=== PATIENT | female | born 1975 | race Caucasian/White ===

== ENCOUNTER 2023-09-02 11:39 | Emergency (ER) | payer MEDICAID, SELFPAY ==
[2023-09-02 11:40] VITALS: BP 114/84; PULSE 74; RESP 14; TEMP 37.2; O2SAT 98; BMI 27.6
[2023-09-02 12:11] VITALS: O2SAT 97
--- OUTSIDE RECORDS SUMMARY | 2023-09-02 12:34 | XMS RPT_ITS | CCD ---
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 She denies any headache. She has had recurrent dizziness. She had episodes of syncope. No chest pain. No shortness of breath. No abdominal pain. No recent infections. No fever or chills. The rest of the review of systems were discussed and were negative. PHYSICAL EXAMINATION GENERAL APPEARANCE: The patient was lying in bed in no acute distress. She was alert and cooperative. VITAL SIGNS: Blood pressure 119/74, heart rate 60, respirations 14, temperature 97, oxygen saturation 98% on room air, weight 141 pounds with BMI of 26.64. HEENT: Unremarkable. NECK: Neck is supple. No JVD. LUNGS: Normal respiratory effort, equal lung expansion, clear to auscultation bilaterally. HEART: Regular rate and rhythm. ABDOMEN: Positive bowel sounds, soft and nontender. EXTREMITIES: Free of pitting edema. NEUROLOGIC: She is alert and oriented. Mood, affect, and memory are within normal limits. Speech is clear. She has no focal deficits. NEUROLOGIC: Laboratory data: White count is within normal limits, as well as hemoglobin and hematocrit. CMP is unremarkable. Troponin is negative. SARS antigen is negative. DIAGNOSTIC DATA: MRI of the brain with no ischemia or mass. Echocardiogram, read by [employer], I had a verbal report prior to discharge that she has as PFO. I did not have the written report as I do now. Ejection fraction is 55 to 60%. Page 2 of 4 KIRTI AGUAYO History Physical/Discharge Summary KIRTI AGUAYO Lissa :1975 No valvular dysfunction. Right ventricles normal size and function. Agitated saline showed a [id number] shunt, appears late, possible pulmonary level shunt, and cannot entirely rule out a PFO. Estimated right ventricular systolic pressure of 15. Otherwise testing was normal. IMPRESSION/PLAN: She was requesting to go home today as she has a trip to [place] tomorrow, somebody else is driving, and she needs to get to a graduation. She has no further symptoms. She was instructed if she has any further symptoms that she needs to go to the emergency room. It was discussed with her on discharge she needs to start an aspirin and her risks with a PFO, and she will need to followup with cardiology to see if any further intervention is needed. The final report shows possible PFO, so I will allow this up to the specialist to decide if she needs further anticoagul (more content not included)... [facility] 12-29-2021 Instructions Piper Gtz De - 12/29/2021 8:32 AM EDT YOUR RECOVERY It may take a few weeks for your cervix to heal. While your cervix heals, you may have: - Vaginal bleeding (less than a normal menstrual period) - Mild cramping - A brown-black vaginal discharge (similar to coffee grounds) which is a result of the paste used to help stop bleeding from the procedure Do NOT put anything in the vagina for 1 week after your colposcopy if your doctor does a biopsy of your cervix. This includes sex, tampons, and douches. If you have any discomfort, you may take an over the counter pain medication (motrin, advil, ibuprofen, tylenol, etc). If this does not relieve your discomfort, contact your doctor's office for a prescription strength pain medication. It is okay to wear a sanitary pad until the discharge and spotting stops. RISKS Although problems seldom occur with colposcopy, there can be some complications. You may feel faint during and shortly after the procedure as well as have some bleeding and vaginal discharge after the procedure. There is also a risk of infection after the procedure. These complications are rare and can be easily treated. You should contact you doctor is you have any of the following: - Heavy bleeding (more than your normal period) - Bleeding with clots - Severe abdominal pain - Fever (more than 100.4F) - Foul smelling vaginal discharge RESULTS If a biopsy was taken, we will have the results of your biopsy in 1-2 weeks. If you do not hear the results of your biopsy after 2 weeks, please contact your physicians office for the results. Depending on the biopsy results, your doctor will determine your follow up plan which may include further testing or treatments. STAYING HEALTHY After the procedure, you will need to see your doctor for follow up visits during the year. At these visits your doctor will check the health of your cervix with a pap smear. After three normal pap smears, your doctor will allow you to return to having exams once a year. If you have another abnormal pap smear, you may need closer follow up for longer or you may need additional treatment. By making a few lifestyle changes after the procedure, you can help protect the health of your cervix: - Have regular pelvic exams and pap smears as ordered by your doctor. - Stop smoking as smoking increases your risk of developing a cancer of the cervix - If you have more than one sexual partner, limit your number of partners and use condoms to reduce your risks of STDs. If you have any additional questions, please contact your doctor's office. documented in this encounter [facility] 12-29-2021 History of Presen t illness Narrative Kirti is a 46 year old who presents today for a colposcopy. The patient's last pap smear was LGSIL from 2021 done by PCP - records reviewed and to be scanned in. Patient has a history of abnormal pap: Yes. The patient has had prior treatment: none. test: negative UNIVERSAL PROTOCOL / SAFETY CHECKLIST Procedure to be Performed: colposcopy with biopsy and ECC Sign In: A Moment of CARE was completed. Personnel directly involved with the procedure wore the appropriate PPE (Personal Protective Equipment). Patient/Surrogate Stated/Verified: PATIENT VERIFIED(optional for EMERGENT procedures): Patient name, Date of , Relevant allergies and The intended procedure Time Out Communication: Intended patient and procedure match the source documents. Consent documented and matches the intended procedure. Sign Out: SIGN OUT (optional for EMERGENT procedures): All specimen containers correctly labeled. All instruments, equipment, possible retained foreign bodies accounted for. Post-procedure follow-up management communicated and Plan of Care Visit completed when applicable. PROCEDURE: EXTERNAL GENITALIA: Normal in appearance without lesions VAGINA: Normal in appearance without lesions CERVIX: Speculum placed in vagina and excellent visualization of cervix achieved. Cervix swabbed x 3 with 3% acetic acid solution. Cervix grossly normal. Squamocolumnar junction visualized. acetowhite changes noted 7 o'clock. BIOPSY: Done at 7:00 ECC: done HEMOSTASIS: Obtained with pressure Procedure Summary: Patient tolerated procedure well and colposcopy was adequate. ASSESSMENT: HPV effect and mild dysplasia PLAN: Specimens labeled and sent to Pathology. Will notify patient of results in 1-2 weeks. Post-procedure instructions reviewed and written material given to the patient. Regina Cardona DO documented in this encounter [facility] 12-16-2021 Miscellaneous Notes Pt returned call and was given below information and assisted in scheduling an appt. For colposcopy. Marsha Garza LPN Received fax from [facility] requesting patient be seen in our office for a colposcopy. LGSIL pap. Left message for patient to call office. Pap record in / nurse area. Kirti Treadwell RN documented in this encounter [facility] Diagnosis Pap smear abnormality of cervix with LGSIL Papanicolaou smear of cervix with low grade squamous intraepithelial lesion (LGSIL) Cervical high risk human papillomavirus (HPV) DNA test positive documented in this encounter [facility] for referral (narrative)* Outpatient Procedure (Routine) - Pending Review Specialty Diagnoses / Procedures Referred By Mark west Referred To Contact [facility] Diagnoses Dyspnea, unspecified type Procedures SPIROMETRY WITH DILATOR IF OBSTRUCTED SPIROMETRY BEFORE/AFTER BRONCHODILATORS Lyssa Mcpherson MD [address] [place] [address] [facility] [address] [place] [id number] Referral ID Status Reason Start Date Expiration Date Visits Requested Visits Authorized [id number] Pending Review Auto-Generat ed Referral 09/23/2021 10/22/2022 1 1 [facility] for referral (narrative)* Outpatient Procedure (Routine) - Pending Review Specialty Diagnoses / Procedures Referred By Mark west Referred To Contact [facility] Diagnoses Pap smear abnormality of cervix with LGSIL Procedures COLPOSCOPY COLPOSCOPY CERVIX BX CERVIX & ENDOCRV CURRETAGE Regina Cardona MD [address] [place] [address] [facility] [address] [place] [address] Referral ID Status Reason Start Date Expiration Date Visits Requested Visits Authorized [id number] Pending Review Auto-Generat ed Referral 12/29/2021 12/29/2022 1 1 [facility] Summary Purpose Family History No Family History Records FoundNo Family History Records FoundNo Family History Records FoundNo Family History Records FoundNo Family History Records Found Advance Directives No Advanced Directives Records FoundNo Advanced Directives Records FoundNo Advanced Directives Records FoundNo Advanced Directives Records FoundNo Advanced Directives Records Found Additional Source Comments INFORMATION SOURCE (unrecogn ized section and content) DATE CREATED AUTHOR AUTHOR'S ORGANIZ ATION 08/08/2021 [facility] DATE CREATED AUTHOR AUTHOR'S ORGANIZ ATION 12/16/2021 [facility] DATE CREATED AUTHOR AUTHOR'S ORGANIZ ATION 05/04/2022 [facility] DATE CREATED AUTHOR AUTHOR'S ORGANIZ ATION 04/24/2023 [facility] Source Comments (unrecognize d section and content) In the event this informatio n is protected by the Federal Confidentiality of Alcohol and Drug Abuse Patient Records regulations: The Federal rules restrict any use of the information to criminally investigate or prosecute any alcohol or drug abuse patient.[facility] event this information is protected by the Federal Confidentiality of Alcohol and Drug Abuse Patient Records regulations: The Federal rules restrict any use of the information to criminally investigate or prosecute any alcohol or drug abuse patient.[facility] the event this information is protected by the Federal Confidentiality of Alcohol and Drug Abuse Patient Records regulations: The Federal rules restrict any use of the information to criminally investigate or prosecute any alcohol or drug abuse patient.[facility] Reason for Visit (unrecogniz ed section and content) Reason Comments Colposcopy Care Teams (unrecognized sec tion and content) Rabbit Fancier Relationship Specialty Start Date End Date [facility] [address] [facility] [address] [place] [id number] PCP - General Infectious Diseases 10/17/21 FOR RECORDS PERTAINING TO PATIENTS WHO ARE OR HAVE BEEN ENROLLED IN A CHEMICAL DEPENDENCY/SUBSTANCEABUSE PROGRAM, SOME INFORMATION MAY BE OMITTED. This clinical summary was aggregated from multiple sources. Caution should be exercised in using it in the provision of clinical care. This summary normalizes information from multiple sources, and as a consequence, information in this document may materially change the coding, format and clinical context of patient data. In addition, data may be omitted in some cases. CLINICAL DECISIONS SHOULD BE BASED ON THE PRIMARY CLINICAL RECORDS. [facility]. provides no warranty or guarantee of the accuracy or completeness of information in this document.
--- NOTE | 2023-09-02 13:04 | EDS_ITS ---
HPI History of Present Illness Chief Complaint: Shortness of Breath Informant: patient Narrative Narrative: Patient presents with still having a cough after COVID. She started with some cough myalgias runny nose Wednesday about 9 days ago. She took home COVID test on Wednesday that were positive. She saw the work place nurse on Wednesday who had a positive COVID. She was able to go back to work this past Wednesday but she went back yesterday because Wednesday was a day off for the workplace. She states she just is still coughing. She notices that she is wheezing. She does have a history of asthma but only uses an inhaler as needed. She states the asthma inh aler helps but the symptoms come back. She was bringing up a little bit of sputum originally but is not doing that now. No fevers. She is not having chest pain. No hemoptysis. No leg pain or swelling. No history of DVT or PE in her other family members. No travel in the last several months or more. No history of hormonal therapy. [facility] Medical History Asthma Cardiac abnormality Allergy/AdvReac Type Severity Reaction Status Date / Time No Known Allergies Allergy Verified 09/02/23 11:39 Social History Smoking Status: Never smoker ROS ROS ED ROS Narrative A complete review of systems was performed and is negative except as documented in the history of present illness. Some specific details below. Constitutional: No recent fevers or chills. She had fevers originally but they are gone EYE: No discharge, visual complaints, or pain. ENT: No difficulty swallowing. No swelling. No pain. No reflux symptoms. CV: No chest pain, palpitations, tachycardia. She has a history of what sounds like a small VSD and does take propranolol but is not having symptoms. Respiratory: See history of present illness. GI: No abdominal pain. No nausea vomiting diarrhea. No blood in stool. : No frequency dysuria or hematuria. Musculoskeletal: No recent trauma. No pains. No swelling. Skin: No rash. Nondiaphoretic. Neuro: No weakness or numbness. Endocrine: No polyuria or polydipsia. EXAM Physical Exam Narrative Exam Narrative: CONSTITUTIONAL: Patient is nontoxic in appearance. The patient looks comfortable. Work of breathing looks normal. HEENT: No notable trauma. Mucous membranes moist. No sinus tenderness. No indication of pain with swallowing. No erythema or exudate. EYES: No conjunctival injection. No proptosis. No icterus. NECK:No JVD. No stridor. CARDIOVASCULAR: Regular rate. Regular rhythm. No notable murmur. No JVD. RESPIRATORY: No respiratory distress. Breathing is unlabored. With regular breaths she does not have wheezing. With a large deep breath or forced expiration she does have a hint of wheeze. When she coughs she has a wheeze. No pain with a deep breath. GASTROINTESTINAL: Not distended. Bowel sounds are normal. No tenderness. No guarding. No rebound. No palpable mass. No bruit is heard. GENITOURINARY: No tenderness over the bladder. No CVA tenderness. MUSCULOSKELETAL: Atraumatic. No peripheral edema. No cord. No tenderness along the deep venous system. No asymmetry. No distended veins. NEUROLOGICAL: Patient is alert and appropriate. No focal deficit noted. SKIN: No noted rashes. No diaphoresis. PSYCHIATRIC: Patient is calm. Mood is appropriate. Const Vital Signs: 09/02/23 11:40 09/02/23 12:11 09/02/23 13:06 Temperature 99 F Temperature Source Temporal Pulse Rate 74 69 Respiratory Rate 14 18 Respiratory Effort Normal Non-Labored Respiratory Depth Normal Respiratory Pattern Normal Normal Blood Pressure 114/84 H Blood Pressure Mean 94 Pulse Ox 98 Oxygen Delivery Method Room Air Room Air MDM MDM MDM Narrative Medical decision making narrative: My independent interpretation of the patient's two-view PA and lateral chest x- ray shows no acute process. Final reading is negative. Patient's COVID is still positive. But her flu and RSV are negative. Patient now tells me she also took COVID tests on Wednesday and likely Wednesday of this week and those were negative. So that brings into question is this new COVID. I will write her off for today and tomorrow. She will follow-up with her workplace nurse. I do not think antibiotics or any other acute treatment is needed. Her lungs were cleared with her breathing treatment. She has a MDI at home Radiography Diagnostic Testing: Clinical Impression(s) from Imaging Studies Chest X-Ray 09/02/23 13:15 IMPRESSION: No evidence of acute cardiopulmonary process. Electronically Signed: Johnathan Acosta DO at 13:25 EST , Discharge Plan Triage Chief Complaint: Shortness of Breath ED Provider: Nicholas Cosby Dx/Rx/DC Orders Clinical Impression: COVID Instructions: Coronavirus Disease 2019 (COVID-19): Caring for Yourself or Others Stand Alone Forms: ED Work / School Excuse Primary Care Provider: Silvia Padron Referrals: Silvia Padron MD [Primary Care Provider] - 2 Days Disposition Disposition: Home, Self Care
[2023-09-02] MEDS: Ipratropium/Albuterol Sulfate 3 ML AMPUL.NEB INHALATION (13:05)
[2023-09-02 13:06] VITALS: PULSE 69; RESP 18
--- NOTE | 2023-09-02 13:15 | RAD_ITS ---
STUDY: X-RAY CHEST REASON FOR EXAM: Female, 48 years old. cough TECHNIQUE: PA and lateral views of the chest. COMPARISON: None. FINDINGS: The lungs are clear and expanded. There is no demonstrated pleural abnormality. Normal size heart. Normal mediastinum and elida. Normal visualized pulmonary arteries. Normal visualized aortic arch and descending thoracic aorta. Normal visualized thoracic spine. Normal visualized ribs, clavicles, and shoulders. There is no demonstrated abnormality of the visualized soft tissue structures of the upper abdomen. RAD/Chest PA and Lateral IMPRESSION: No evidence of acute cardiopulmonary process. Electronically Signed: Johnathan Acosta DO at 13:25 [facility] ,
[2023-09-02 15:22] VITALS: BP 118/79; PULSE 99; RESP 18; O2SAT 98
== END 2023-09-02 15:24 | disposition home or self-care (01) ==
PROVIDERS: Emergency Provider Emergency Medicine; PCP Internal Medicine Infectious Disease; Visit Provider Emergency Medicine
DX: U07.1 COVID-19 (principal); J45.909 Unspecified asthma, uncomplicated
CPT/HCPCS: 71046; 87631; 94640; 99282

== ENCOUNTER → 2023-11-22 | Outpatient (CLI) | payer MEDICAID, SELFPAY ==
[2023-11-22 17:43] LABS: Absolute Lymphocyte Count 4.18 X10^3/uL (0.83-4.51); Absolute Neutrophil Count 4.9 X10^3/uL (2.0-7.7); Basophil# 0.05 X10^3/uL; Basophil% 0.5 % (0-1); Eosinophil# 0.39 X10^3/uL; Eosinophils% 3.9 % (0-5); Hematocrit 37.1 % (37-47); Hemoglobin 11.8 g/dL (12.0-15.0); Lymphocyte # 4.18 X10^3/ul (0.83-4.51); Lymphocyte % 41.5 % (19-41); Mean Corp Hgb Conc 31.8 g/dL (32-36); Mean Corpuscular Hgb 30.3 pg (27.0-32.0); Mean Corpuscular Volume 95.1 fL (81-99); Mean Platelet Vol. 9.4 fl (6.2-12.0); NRBC Flagged by Analyzer 0 % (0-5); Neutrophil # 4.93 X10^3/uL (2.7-7.7); Neutrophil % 48.9 % (47-70); Platelet Count 278 K/mm3 (150-450); RBC Distribution Width CV 13.3 % (11.6-14.6); RBC Distribution Width SD 46.6 fl (35.1-43.9); White Blood Count 10.1 K/mm3 (4.4-11.0)
[2023-11-22 18:08] LABS: AST(SGOT) 14 U/L (15-37); Alanine Aminotransfer ALT/SGPT 15 U/L (13-56); Albumin, Serum 3.7 g/dL (3.2-5.0); Alkaline Phosphatase 65 U/L (45-117); Anion Gap 6 (5-15); BUN 14 mg/dL (7-18); BUN/Creat Ratio 19.3 RATIO (10-20); Calcium,Total 8.9 mg/dL (8.5-10.1); Chloride 106 mmol/L (98-107); Creatinine, Serum 0.73 mg/dL (0.55-1.02); EST Glomerular Filtration Rate 91 mL/min (>60); Est Glom Filt Rate - Afr Amer 110 mL/min (>60); Globulin 3.7 g/dL (2.2-4.2); Glucose 85 mg/dL (74-106); Protein, Total 7.4 g/dL (6.4-8.2); Sodium Level 138 mmol/L (136-145)
== END | disposition home or self-care (01) ==
LOC: MTLAB 15:59
PROVIDERS: PCP Family Medicine; Referring Provider Family Medicine; Visit Provider Family Medicine
DX: B35.3 Tinea pedis (principal)
CPT/HCPCS: 36415; 80053; 85025

== ENCOUNTER → 2024-01-07 | Outpatient (CLI) | payer MEDICAID, SELFPAY ==
[2024-01-07 18:09] LABS: Thyroid Stim Hormone (TSH) 3.36 uIU/mL (0.358-3.74)
== END | disposition home or self-care (01) ==
PROVIDERS: PCP Family Medicine; Referring Provider Family Medicine; Visit Provider Family Medicine
DX: F33.9 Major depressive disorder, recurrent, unspecified (principal)
CPT/HCPCS: 36415; 84443

== ENCOUNTER 2024-01-11 08:05 | Emergency (ER) | payer MEDICAID, SELFPAY ==
[2024-01-11 08:07] VITALS: BP 123/69; PULSE 79; RESP 87; TEMP 36.6; O2SAT 16; BMI 28.4
--- NOTE | 2024-01-11 08:16 | RAD_ITS ---
STUDY: X-RAY CHEST REASON FOR EXAM: Female, 48 years old. Chest pain and shortness of breath. TECHNIQUE: Single AP portable view of the chest. COMPARISON: Comparison is made with prior study dated September 02, 2023. FINDINGS: EKG electrodes are seen. The lungs are clear and expanded. There is no demonstrated pleural abnormality. Normal size heart. Normal mediastinum and elida. Normal visualized pulmonary arteries. Normal visualized aortic arch and descending thoracic aorta. Normal visualized thoracic spine. Normal visualized ribs, clavicles, and shoulders. There is no demonstrated abnormality of the visualized soft tissue structures of the upper abdomen. RAD/Chest 1 View (Portable) IMPRESSION: Normal x-ray examination of the chest. Electronically Signed: Maged De Paz MD at 8:39 EDT ,
--- NOTE | 2024-01-11 08:16 | EKG12_ITS ---
Test Reason : CHEST PAIN Blood Pressure : / mmHG Vent. Rate : 072 BPM Atrial Rate : 072 BPM P-R Int : 160 ms QRS Dur : 082 ms QT Int : 400 ms P-R-T Axes : 075 078 070 degrees QTc Int : 438 ms Normal sinus rhythm Normal ECG Confirmed by BRIGITTE MOORE, DUGLAS ([id number]), editor trade journal ASHKAN BAIRD ([id number]) on 01/13/2024 10:11:17 AM Referred By: Confirmed By:DUGLAS BRIGGS MD
[2024-01-11 08:34] LABS: Absolute Lymphocyte Count 3.53 X10^3/uL (0.83-4.51); Absolute Neutrophil Count 4.2 X10^3/uL (2.0-7.7); Basophil# 0.04 X10^3/uL; Basophil% 0.5 % (0-1); Eosinophil# 0.33 X10^3/uL; Eosinophils% 3.7 % (0-5); Hematocrit 39.1 % (37-47); Hemoglobin 12.9 g/dL (12.0-15.0); Lymphocyte # 3.53 X10^3/ul (0.83-4.51); Lymphocyte % 39.8 % (19-41); Mean Corpuscular Hgb 31.6 pg (27.0-32.0); Mean Corpuscular Volume 95.8 fL (81-99); Mean Platelet Vol. 9.3 fl (6.2-12.0); Monocyte# 0.74 X10^3/uL; Monocyte% 8.4 % (0-10); NRBC Flagged by Analyzer 0 % (0-5); Neutrophil % 47.4 % (47-70); Platelet Count 259 K/mm3 (150-450); RBC Distribution Width CV 13.1 % (11.6-14.6); RBC Distribution Width SD 46.9 fl (35.1-43.9); Red Blood Count 4.08 M/mm3 (4.2-5.4); White Blood Count 8.9 K/mm3 (4.4-11.0)
--- NOTE | 2024-01-11 08:49 | ED.VIS.CHEST ---
HPI History of Present Illness Chief Complaint: Chest Pain Narrative Narrative: 48-year-old female presenting with chest pain. She states the chest pain started yesterday in the mid day and has been pretty constant. She cannot describe it any more than to say it hurts. It does hurt worse with deep inspiration and with coughing. She has not had a lot of coughing but she states she feels unwell like she has pneumonia. She denies fever. Patient states she has had back pain for 2 days prior to the chest pain starting. She states that laying down makes her pain worse and sitting up relieves it to some degree but it does not go away. She is not lightheaded or dizzy but she does feel short of breath. She tried to go to work today and she did not feel she could do it due to the pain and shortness of breath. Patient is a smoker. She states she has a history of a hole in my heart. She states he follows with somebody [facility] yearly for checkups. She has history of DVT 20 years ago when but no other history of provoked or unprovoked DVT. PE Risk Factors: Positive for Prior DVT or PE; Negative for Recent Travel/Surgery, Recent Immobilization, Cancer or OCP + Smoking + >/=35 PFSH PFSH Medical History Asthma Cardiac abnormality Home Medications albuterol sulfate 90 mcg/actuation aerosol inhaler (Ventolin HFA) 1 - 2 puff inhalation Q4H PRN PRN Wheezing #6.7 grams 01/11/24 [Rx Last Taken Unknown] lidocaine 5 % topical patch (Lidoderm) 1 patch topical DAILY #15 ea 01/11/24 [Rx Last Taken Unknown] prednisone 50 mg tablet 50 mg PO DAILY #4 tabs 01/11/24 [Rx Last Taken Unknown] tizanidine 4 mg tablet 4 mg PO Q8H PRN muscle spasticity #20 tabs 01/11/24 [Rx Last Taken Unknown] Allergy/AdvReac Type Severity Reaction Status Date / Time No Known Allergies Allergy Verified 01/11/24 08:06 Social History Smoking Status: Never smoker EXAM Physical Exam Const Vital Signs: 01/11/24 08:07 01/11/24 08:16 01/11/24 08:16 Temperature 98 F Temperature Source Temporal Pulse Rate 79 Respiratory Rate 87 H Respiratory Effort Normal Respiratory Pattern Blood Pressure 123/69 H Blood Pressure Mean 87 Pulse Ox 16 Oxygen Delivery Method Room Air Room Air 01/11/24 09:14 Temperature Temperature Source Pulse Rate 59 L Respiratory Rate 18 Respiratory Effort Respiratory Pattern Normal Blood Pressure Blood Pressure Mean Pulse Ox Oxygen Delivery Method Positive well nourished General Appearance ED: NAD HEENT Reports moist mucous membranes normocephalic and atraumatic Eyes PERRL and EOMs intact bilaterally MDM MDM MDM Narrative Medical decision making narrative: Patient presenting chest pain which has had since yesterday. She also has some shortness of breath. On examination she is wheezing and she was given breathing treatments as well as Solu-Medrol. Differential includes asthma flare, pneumonia, ACS, PE, dehydration, electrolyte abnormalities. CBC shows normal white blood cell count, hemoglobin, platelets. BMP shows normal renal function, electrolytes, glucose. High-sensitivity troponin less than 3 with pain since yesterday sidle believe she is a delta troponin. D-dimer was negative. Chest x-ray my interpretation showed no acute process. Radiologist interprets this and agrees. EKG sinus rhythm at 72 bpm, ischemic change or dysrhythmia. I do believe that the patient's pain is likely musculoskeletal as she has reproducible pain in the upper back and chest. Workup is ultimately normal. I will give her an albuterol inhaler and prednisone for her wheezing and shortness of breath. I will give her muscle lectures for her back pain. She is to take Tylenol and ibuprofen. She is given a work note for today. Impression: 1. Back pain 2. Chest pain Lab Data Attestation: I reviewed the patient's lab results. Labs: Laboratory Results - last 24 hr 01/11/24 08:22 WBC 8.9 RBC 4.08 L Hgb 12.9 Hct 39.1 MCV 95.8 MCH 31.6 MCHC 33.0 RDW Std Deviation 46.9 H RDW Coeff of Fariha 13.1 Plt Count 259 MPV 9.3 Immature Gran % (Auto) 0.200 Neut % (Auto) 47.4 Lymph % (Auto) 39.8 [place] % (Auto) 8.4 Eos % (Auto) 3.7 Baso % (Auto) 0.5 Absolute Neuts (auto) 4.2 Absolute Lymphs (auto) 3.53 Nucleated RBC % 0 D-Dimer Quant (PE/DVT) < 0.27 L Sodium 138 Potassium 4.0 Chloride 107 Carbon Dioxide 28.0 Anion Gap 3 L BUN 12 Creatinine 0.78 Estim Creat Clear Calc 78.77 Est GFR (MDRD) Af Amer 102 Est GFR (MDRD) Non-Af 84 BUN/Creatinine Ratio 15.4 Glucose 91 Calcium 8.7 Troponin I High Sens < 3 L Radiography Diagnostic Testing: Clinical Impression(s) from Imaging Studies Chest X-Ray 01/11/24 08:16 IMPRESSION: Normal x-ray examination of the chest. Electronically Signed: Maged De Paz MD at 8:39 EDT , Discharge Plan Triage Chief Complaint: Chest Pain ED Provider: Heladio Olivares Dx/Rx/DC Orders Instructions: ED Asthma, Acute (Adult), ED Back Spasm, No Trauma Prescriptions: New tizanidine 4 mg tablet 4 mg PO Q8H PRN (Reason: muscle spasticity) Qty: 20 0RF prednisone 50 mg tablet 50 mg PO DAILY Qty: 4 0RF albuterol sulfate [Ventolin HFA] 90 mcg/actuation HFA aerosol inhaler 1 - 2 puff inhalation Q4H PRN PRN (Reason: Wheezing) Qty: 6.7 0RF lidocaine [Lidoderm] 5 % adhesive patch,medicated 1 patch topical DAILY Qty: 15 0RF Rx Instructions: leave on most painful area for up to 12 hrs Stand Alone Forms: Work / School Excuse Primary Care Provider: Chepe Watkins Referrals: Chepe Watkins MD [Primary Care Provider] - Disposition Disposition: Home, Self Care
[2024-01-11 08:57] LABS: Anion Gap 3 (5-15); BUN 12 mg/dL (7-18); BUN/Creat Ratio 15.4 RATIO (10-20); Calcium,Total 8.7 mg/dL (8.5-10.1); Chloride 107 mmol/L (98-107); Creatinine, Serum 0.78 mg/dL (0.55-1.02); EST Glomerular Filtration Rate 84 mL/min (>60); Est Glom Filt Rate - Afr Amer 102 mL/min (>60); Estimated Creatinine Clearance 78.77 ml/min; Glucose 91 mg/dL (74-106); Sodium Level 138 mmol/L (136-145); Troponin-I HS (w/2H Reflex) < 3 pg/mL (3.0-54.0)
[2024-01-11] MEDS: Albuterol 2.5 MG/3 ML VIAL.NEB. INHALATION (09:13)
[2024-01-11] MEDS: Ipratropium/Albuterol Sulfate 3 ML AMPUL.NEB INHALATION (09:13)
[2024-01-11 09:14] VITALS: PULSE 59; RESP 18
[2024-01-11] MEDS: Ketorolac 15 MG/ML Vial IV (09:15)
[2024-01-11] MEDS: MethylPREDNISolone 125 MG/2 ML Vial IV (09:15)
[2024-01-11] MEDS: Morphine 4 MG/ML Syringe IV (09:49)
[2024-01-11] MEDS: Ondansetron 4 MG/2 ML Vial IV (09:49)
[2024-01-11 10:00] LABS: D-Dimer Quantitative (DVT/PE) < 0.27 FEU/ug/m (0.27-0.49)
[2024-01-11 10:06] VITALS: BP 99/78; PULSE 78; RESP 16; O2SAT 99
[2024-01-11 10:30] LABS: Reflex Troponin-HS? (from REC) Y
[2024-01-11 12:06] VITALS: BP 103/76; PULSE 85; RESP 16; O2SAT 99
[2024-01-11 12:34] VITALS: BP 99/64; PULSE 67; RESP 14; TEMP 36.4; O2SAT 99
== END 2024-01-11 12:35 | disposition home or self-care (01) ==
PROVIDERS: Emergency Medicine; Emergency Provider Student in an Organized Health Care Education/Training Program; PCP Family Medicine; Visit Provider Student in an Organized Health Care Education/Training Program
DX: R07.9 Chest pain, unspecified (principal); R06.02 Shortness of breath; M54.9 Dorsalgia, unspecified; J45.909 Unspecified asthma, uncomplicated
CPT/HCPCS: 71045; 80048; 84484; 85025; 85379; 93005; 94640; 96374; 96375; 99285; A4216; J2405

== ENCOUNTER 2024-02-18 16:20 | Emergency (ER) | payer OTHER, SELFPAY ==
[2024-02-18 16:21] VITALS: BP 138/80; PULSE 78; RESP 18; TEMP 35.7; O2SAT 98; BMI 28.7
--- NOTE | 2024-02-18 16:29 | EDS_ITS ---
HPI History of Present Illness Chief Complaint: Syncope Informant: patient Onset/Context/Timing Onset: Month(s) (1) Context: Sudden Onset Timing: Intermittent Quality: Dizzy, lightheaded Location: Generalized Worsened by: Nothing Relieved by: Nothing Narrative Narrative: Patient presents with multiple syncopal episodes that have been occurring over the past month. Patient states she gets dizzy and has palpitations and then passes out for a few seconds to a minute. Patient states that these come on rather suddenly. Patient states she has had a couple episodes today. Currently, patient states she still feels some palpitations at this time. Patient states nothing makes her symptoms better and nothing makes them worse. Patient states she has been decreasing her caffeine intake. Patient states she did have some subjective fevers the other day. Patient also admits to some blurred vision. Patient admits to some shortness of breath and nausea. Patient also admits to mild headache. [facility] Medical History Asthma Cardiac abnormality Home Medications ?Medication ?Instructions ?Recorded ?Last Taken ?Type albuterol sulfate 90 mcg/actuation 1 - 2 puff inhalation Q4H PRN PRN 01/11/24 Unknown Rx aerosol inhaler (Ventolin HFA) Wheezing #6.7 grams lidocaine 5 % topical patch 1 patch topical DAILY #15 ea 01/11/24 Unknown Rx (Lidoderm) prednisone 50 mg tablet 50 mg PO DAILY #4 tabs 01/11/24 Unknown Rx tizanidine 4 mg tablet 4 mg PO Q8H PRN muscle spasticity 01/11/24 Unknown Rx #20 tabs Allergy/AdvReac Type Severity Reaction Status Date / Time No Known Allergies Allergy Verified 02/18/24 16:21 Social History (Updated 02/18/24 @ 16:[address] Cuco Goldstein, DO) Smoking Status: Current every day smoker tobacco type: cigarettes ROS ROS ED Constitutional Constitutional ED: Reports fever(s) and subjective; Denies chills Eyes Eyes: Reports blurry vision; Denies change in vision ENT ENT ED: Denies rhinorrhea or sore throat Cardiovascular Cardiovascular: Reports palpitations; Denies chest pain Respiratory/Chest Respiratory/Chest: Reports dyspnea; Denies cough Gastrointestinal Gastrointestinal: Reports nausea; Denies vomiting Genitourinary Genitourinary ED: Denies dysuria or hematuria Musculoskeletal Musculoskeletal: Denies back pain or neck pain Integumentary Denies abscess or rash Neurologic Neurologic: Reports headache(s); Denies weakness Allergic/Immunologic Allergic/Immunologic ED: Denies mouth swelling or urticaria EXAM Physical Exam Const Vital Signs: 02/18/24 16:21 02/18/24 17:05 02/18/24 17:11 Temperature 96.2 F L Temperature Source Temporal Pulse Rate 78 Pulse Rate [Sitting (for 1 minute prior to obtaining)] 75 Pulse Rate [Standing (for 1 minute prior to obtaining)] 81 Respiratory Rate 18 Respiratory Pattern Normal Blood Pressure 138/80 H Blood Pressure [Lying] 119/73 Blood Pressure [Sitting (for 1 minute prior to obtaining)] 129/81 H Blood Pressure [Standing (for 1 minute prior to obtaining)] 127/85 H Blood Pressure Mean 99 Blood Pressure Mean [Lying] 88 Blood Pressure Mean [Sitting (for 1 minute prior to obtaining)] 97 Blood Pressure Mean [Standing (for 1 minute prior to obtaining)] 99 Pulse Ox 98 Oxygen Delivery Method Room Air 02/18/24 18:20 Temperature Temperature Source Pulse Rate 69 Pulse Rate [Sitting (for 1 minute prior to obtaining)] Pulse Rate [Standing (for 1 minute prior to obtaining)] Respiratory Rate 16 Respiratory Pattern Blood Pressure 135/78 H Blood Pressure [Lying] Blood Pressure [Sitting (for 1 minute prior to obtaining)] Blood Pressure [Standing (for 1 minute prior to obtaining)] Blood Pressure Mean 97 Blood Pressure Mean [Lying] Blood Pressure Mean [Sitting (for 1 minute prior to obtaining)] Blood Pressure Mean [Standing (for 1 minute prior to obtaining)] Pulse Ox 100 Oxygen Delivery Method Positive well nourished and well developed General Appearance ED: well developed and NAD HEENT Reports moist mucous membranes Neck supple and no JVD Resp normal respiratory effort and clear to auscultation bilaterally Cardio regular rate and regular rhythm GI non-tender and non-distended Palpation: soft Extremity normal to inspection General Extremety ED: Negative for edema or tenderness General Extremity: Negative for edema Neuro oriented x3, CN's II-XII intact bilaterally and no sensory deficits noted Sensorium / Orientation: alert Motor Exam: strength 5/5 throughout MDM MDM MDM Narrative Medical decision making narrative: Differential diagnosis includes cardiac dysrhythmia, cardiac ischemia, pneumonia, pneumothorax, pulmonary embolism, electrolyte abnormality, anxiety, and hypoglycemia. EKG will be obtained to assess for cardiac dysrhythmia and cardiac ischemia. Chest x-ray will be obtained to assess for pneumonia and pneumothorax. CBC will be obtained to assess for leukocytosis and anemia. Basic metabolic profile will be obtained to assess for electrolyte abnormality and renal function. High-sensitivity troponin will be obtained to assess for cardiac ischemia. Urinalysis will be obtained to assess for urinary tract infection. D-dimer will be obtained to assess for pulmonary embolism. Lab Data Attestation: I reviewed the patient's lab results. Lab results narrative: CBC was reviewed and was within normal limits. Basic metabolic profile was reviewed and was within normal limits. High-sensitivity troponin was reviewed and was less than 3. D-dimer was reviewed and was less than 0.27. Urinalysis was reviewed. There is no evidence of urinary tract infection or hematuria. Labs: Laboratory Results - last 24 hr 02/18/24 02/18/24 17:00 17:20 WBC 10.5 RBC 3.98 L Hgb 13.0 Hct 39.7 MCV 99.7 H MCH 32.7 H MCHC 32.7 RDW Std Deviation 47.6 H RDW Coeff of Fariha 12.8 Plt Count 236 MPV 9.1 Immature Gran % (Auto) 0.300 Neut % (Auto) 58.8 Lymph % (Auto) 32.1 [place] % (Auto) 6.6 Eos % (Auto) 1.9 Baso % (Auto) 0.3 Absolute Neuts (auto) 6.2 Absolute Lymphs (auto) 3.38 Nucleated RBC % 0 D-Dimer Quant (PE/DVT) < 0.27 L Sodium 139 Potassium 4.6 Chloride 107 Carbon Dioxide 25.0 Anion Gap 7 BUN 17 Creatinine 0.68 Estim Creat Clear Calc 90.80 Est GFR (MDRD) Af Amer 120 Est GFR (MDRD) Non-Af 99 BUN/Creatinine Ratio 25.1 H Glucose 107 H Calcium 9.2 Troponin I High Sens < 3 L Urine Color Yellow Urine Clarity Clear Urine pH 6.0 Ur Specific [place] 1.015 Urine Protein Negative Urine Glucose (UA) Normal Urine Ketones Negative Urine Occult Blood Negative Urine Nitrite Negative Urine Bilirubin Negative Urine Urobilinogen Normal Ur Leukocyte Esterase Negative Urine RBC 0 SEEN Urine WBC 0 SEEN Ur Squamous Epith Cells 0 SEEN Urine Bacteria 0 SEEN Urine Mucus 0 SEEN Radiography Chest X-Ray - ED: 2 View, Read by ED Physician and Read by Radiologist Diagnostic Testing: Clinical Impression(s) from Imaging Studies Brain CT 02/18/24 17:40 IMPRESSION: Normal unenhanced CT scan of the brain. Electronically Signed: Andrew Adams MD at 17:58 EDT , Chest X-Ray 02/18/24 17:45 IMPRESSION: Normal x-ray examination of the chest. Electronically Signed: Andrew Adams MD at 17:59 EDT , CT scan of the brain was obtained. There is no acute intracranial abnormality. This was interpreted by the radiologist and was also independently reviewed by myself. PA and lateral chest x-ray was obtained. There are 2 views. On my independent interpretation, lung mckeon are clear. There is normal cardiac silhouette. Bony thorax is normal. There is no acute process noted. Radiologist also interpreted the x-ray and agrees. EKG Initial EKG: Attestation: I personally reviewed and interpreted this EKG as follows: Interpretation: Sinus Rhythm (69) and No Acute Injury Pattern Comments: EKG was obtained. On my independent interpretation, it showed a normal sinus rhythm with a rate of 69. SD interval, QRS interval, and QTc intervals were all normal. [place] was normal. There are no acute ST or T wave changes. Prior EKG tracings: available for review Prior: Unchanged (01/11/2024) Treatment and Re-Evaluation :: Patient was given IV fluids. Patient was given a dose of Tylenol here for her headache. Orthostatic vital signs were obtained and were within normal limits. Patient started feeling anxious. Patient was given a dose of hydroxyzine. Patient was advised of her findings. Patient is feeling better on reevaluation. Patient was instructed to follow-up with her primary care physician in 5 to 7 days for further evaluation. Patient understood and was agreeable with the plan. All questions were answered. Discharge Plan Triage Chief Complaint: Syncope ED Provider: Schwiger,Cuco Dx/Rx/DC Orders Clinical Impression: Syncope, Palpitations Instructions: ED Palpitations, ED Fainting, Uncertain Cause Prescriptions: No Action tizanidine 4 mg tablet 4 mg PO Q8H PRN (Reason: muscle spasticity) Qty: 20 0RF prednisone 50 mg tablet 50 mg PO DAILY Qty: 4 0RF albuterol sulfate [Ventolin HFA] 90 mcg/actuation HFA aerosol inhaler 1 - 2 puff inhalation Q4H PRN PRN (Reason: Wheezing) Qty: 6.7 0RF lidocaine [Lidoderm] 5 % adhesive patch,medicated 1 patch topical DAILY Qty: 15 0RF Rx Instructions: leave on most painful area for up to 12 hrs Stand Alone Forms: ED Work / School Excuse Primary Care Provider: Chepe Watkins Referrals: Chepe Watkins MD [Primary Care Provider] - 5-7 Days Print Language: Luxembourger Disposition Disposition: Home, Self Care
--- NOTE | 2024-02-18 16:57 | EKG12_ITS ---
Test Reason : SYNCOPE Blood Pressure : / mmHG Vent. Rate : 069 BPM Atrial Rate : 069 BPM P-R Int : 162 ms QRS Dur : 078 ms QT Int : 382 ms P-R-T Axes : 056 071 060 degrees QTc Int : 409 ms Normal sinus rhythm Normal ECG Confirmed by DAVID MOORE, MOOK ([id number]), film and video editor BANDAR NUÑEZ ([id number]) on 02/21/2024 9:47:57 AM Referred By: Confirmed By:GRABIEL HERNANDEZ MD
[2024-02-18 17:11] VITALS: BP 119/73; BP 127/85; BP 129/81; PULSE 75; PULSE 81
[2024-02-18 17:15] LABS: Absolute Lymphocyte Count 3.38 X10^3/uL (0.83-4.51); Absolute Neutrophil Count 6.2 X10^3/uL (2.0-7.7); Basophil# 0.03 X10^3/uL; Basophil% 0.3 % (0-1); Eosinophils% 1.9 % (0-5); Hematocrit 39.7 % (37-47); Lymphocyte # 3.38 X10^3/ul (0.83-4.51); Lymphocyte % 32.1 % (19-41); Mean Corp Hgb Conc 32.7 g/dL (32-36); Mean Corpuscular Hgb 32.7 pg (27.0-32.0); Mean Corpuscular Volume 99.7 fL (81-99); Mean Platelet Vol. 9.1 fl (6.2-12.0); Monocyte% 6.6 % (0-10); NRBC Flagged by Analyzer 0 % (0-5); Neutrophil # 6.19 X10^3/uL (2.7-7.7); Neutrophil % 58.8 % (47-70); Platelet Count 236 K/mm3 (150-450); RBC Distribution Width CV 12.8 % (11.6-14.6); RBC Distribution Width SD 47.6 fl (35.1-43.9); Red Blood Count 3.98 M/mm3 (4.2-5.4); White Blood Count 10.5 K/mm3 (4.4-11.0)
[2024-02-18] MEDS: 0.9% Normal Saline (1000mL) 1,000 ML 1000 ML IV (17:21)
[2024-02-18 17:32] LABS: Bacteria 0 SEEN /hpf (None Seen); Mucous, Urine 0 SEEN /hpf (<or=2+); Red Blood Cells-Urine 0 SEEN /hpf (0-5); Squamous Epithelial Cells - UA 0 SEEN /hpf (5-10); White Blood Cells 0 SEEN /hpf (0-5)
[2024-02-18 17:33] LABS: D-Dimer Quantitative (DVT/PE) < 0.27 FEU/ug/m (0.27-0.49)
[2024-02-18 17:36] LABS: Color, Urine Yellow (Yellow); Glucose, Dipstick Normal (Normal); Ketone-Dipstick Negative (Negative); Leukocyte Esterase-Dipstick Negative /ul (Negative); Nitrite-Dipstick Negative (Negative); Occult Blood-Urine Negative /ul (Negative); Protein-Dipstick Negative (Negative); Specific Gravity, Urine 1.015 (1.002-1.030); Urine Bilirubin Dipstick Negative (Negative); Urine Clarity Clear (Clear); Urine Urobilinogen Normal (Normal)
--- NOTE | 2024-02-18 17:40 | CT_ITS ---
STUDY: CT BRAIN WITHOUT CONTRAST REASON FOR EXAM: Female, 48 years old. Syncope RADIATION DOSAGE (If Supplied By Facility): CTDIvol = ( 44.99 ) mGy, DLP = ( 829.85 ) mGycm TECHNIQUE: Transaxial CT imaging of the brain was performed without administration of intravenous contrast material. Individualized dose optimization techniques were used for this CT. COMPARISON: No relevant priors. FINDINGS: Normal soft tissue structures. Normal calvarium. Normal size ventricles and extra-axial spaces for the patient''s age. Normal white matter tracts of the cerebral hemispheres. Normal basal ganglia and thalami. Normal brainstem. Normal cerebellum. There is no intracranial hemorrhage. There are no findings of an acute ischemic infarction. Normal visualized paranasal sinuses. CT/Brain/Head without Contrast IMPRESSION: Normal unenhanced CT scan of the brain. Electronically Signed: Andrew Adams MD at 17:58 EDT ,
[2024-02-18 17:41] LABS: Anion Gap 7 (5-15); BUN 17 mg/dL (7-18); BUN/Creat Ratio 25.1 RATIO (10-20); Calcium,Total 9.2 mg/dL (8.5-10.1); Chloride 107 mmol/L (98-107); Creatinine, Serum 0.68 mg/dL (0.55-1.02); EST Glomerular Filtration Rate 99 mL/min (>60); Est Glom Filt Rate - Afr Amer 120 mL/min (>60); Glucose 107 mg/dL (74-106); Potassium 4.6 mmol/L (3.5-5.1); Sodium Level 139 mmol/L (136-145); Troponin-I HS < 3 pg/mL (3.0-54.0)
--- NOTE | 2024-02-18 17:45 | RAD_ITS ---
STUDY: X-RAY CHEST REASON FOR EXAM: Female, 48 years old. Syncope TECHNIQUE: Frontal and lateral views of the chest. COMPARISON: 01/11/2024. FINDINGS: The lungs are clear and expanded. There is no demonstrated pleural abnormality. Normal size heart. Normal mediastinum and elida. Normal visualized pulmonary arteries. Normal visualized aortic arch and descending thoracic aorta. Normal visualized thoracic spine. Normal visualized ribs, clavicles, and shoulders. There is no demonstrated abnormality of the visualized soft tissue structures of the upper abdomen. RAD/Chest PA and Lateral IMPRESSION: Normal x-ray examination of the chest. Electronically Signed: Andrew Adams MD at 17:59 EDT ,
[2024-02-18] MEDS: Acetaminophen 500 MG Tablet 1000 MG PO (17:59)
[2024-02-18 18:20] VITALS: BP 135/78; PULSE 69; RESP 16; O2SAT 100
[2024-02-18] MEDS: hydrOXYzine PAM 25 MG Capsule PO (18:40)
[2024-02-18 18:50] VITALS: BP 135/78; PULSE 70; RESP 16; TEMP 36.4; O2SAT 99
== END 2024-02-18 18:50 | disposition home or self-care (01) ==
PROVIDERS: Emergency Provider Emergency Medicine; PCP Family Medicine; Visit Provider Emergency Medicine
DX: R55 Syncope and collapse (principal); R00.2 Palpitations; R06.02 Shortness of breath; F17.210 Nicotine dependence, cigarettes, uncomplicated; J45.909 Unspecified asthma, uncomplicated; R51.9 Headache, unspecified; R11.0 Nausea
CPT/HCPCS: 70450; 71046; 80048; 81001; 84484; 85025; 85379; 93005; 96360; 99285; J7030; A4216

== ENCOUNTER 2024-04-28 05:20 | Emergency (ER) | payer OTHER, SELFPAY ==
[2024-04-28 05:22] VITALS: BP 119/71; PULSE 73; RESP 16; TEMP 36.9; O2SAT 97; BMI 28.2
--- NOTE | 2024-04-28 05:49 | EX.ED.UPPERE ---
HPI History of Present Illness Chief Complaint: Upper Extremity Injury Informant: patient Narrative Narrative: Patient presenting to the emergency department chief complaint of right forearm swelling and pain. Patient states that she got up to go to work today no swelling over the lateral volar aspect of the right forearm. She notes tingling of all of her fingers except the little finger. She states her hand feels swollen. She notes a area of erythema in the area of the arm that is swollen. She denies any history of DVT or PE. She states that she thought maybe she had slept on her forearm that she often Rester had on her forearm while sleeping. She denies any loss of function of the arm. [facility] Medical History Asthma Cardiac abnormality Home Medications ?Medication ?Instructions ?Recorded ?Last Taken ?Type albuterol sulfate 90 mcg/actuation 1 - 2 puff inhalation Q4H PRN PRN 01/11/24 Unknown Rx aerosol inhaler (Ventolin HFA) Wheezing #6.7 grams cephalexin 500 mg capsule 500 mg PO Q6 #28 CAPSULES 04/28/24 Unknown Rx escitalopram oxalate 10 mg tablet 10 mg PO DAILY 04/28/24 Unknown History oxycodone-acetaminophen 5 mg-325 1 tab PO Q6H PRN pain 3 days #12 04/28/24 Unknown Rx mg tablet (Percocet) tabs propranolol 20 mg tablet 20 mg PO BID 04/28/24 Unknown History Allergy/AdvReac Type Severity Reaction Status Date / Time No Known Allergies Allergy Verified 04/28/24 05:28 Social History Smoking Status: Current every day smoker tobacco type: cigarettes ROS ROS ED Constitutional Constitutional ED: Denies chills or weight loss Eyes Eyes: Denies change in vision or diplopia ENT ENT ED: Denies ear pain, rhinorrhea or sore throat Cardiovascular Cardiovascular: Denies chest pain, orthopnea, palpitations or racing heartbeat Respiratory/Chest Respiratory/Chest: Denies cough, dyspnea or orthopnea Gastrointestinal Gastrointestinal: Denies abdominal pain, diarrhea, nausea or vomiting Genitourinary Genitourinary ED: Denies dysuria, hematuria or urinary frequency Musculoskeletal Musculoskeletal: Reports other Details: See history of present illness ; Denies arthralgias or myalgias Integumentary Reports rash; Denies abscess Neurologic Neurologic: Denies headache(s) or weakness Psychiatric Psychiatric: Denies anxiety, depression, suicidal ideation or suicidal thoughts Endocrine Endocrinology: Denies polydipsia, polyphagia or polyuria Allergic/Immunologic Allergic/Immunologic ED: Denies mouth swelling, tongue swelling or urticaria EXAM Physical Exam Const Vital Signs: 04/28/24 05:22 Temperature 98.4 F Temperature Source Oral Pulse Rate 73 Respiratory Rate 16 Blood Pressure 119/71 Blood Pressure Mean 87 Pulse Ox 97 Oxygen Delivery Method Room Air Positive well nourished and well developed General Appearance ED: well developed HEENT Reports normocephalic, head/scalp atraumatic and moist mucous membranes Eyes PERRL and EOMs intact bilaterally Neck no lymphadenopathy, supple and no JVD Resp normal respiratory effort and clear to auscultation bilaterally Cardio regular rate, regular rhythm and no murmurs GI normal to inspection, nondistended, normoactive bowel sounds and non-tender Palpation: soft Back/Spine no CVA tenderness and normal ROM Extremity Extremity Narrative: Patient appears to have some soft tissue swelling over the proximal volar lateral aspect of the forearm. This area is mildly erythematous but blanches. She has normal tendon function distal. Neurovascularly she is intact. I do not appreciate any distal swelling though the patient states that her hand feels swollen when she makes a fist. The area that is swollen is tender to palpation General Extremety ED: Negative for edema General Extremity: Negative for edema Neuro oriented x3 and CN's II-XII intact bilaterally Sensorium / Orientation: alert Motor Exam: strength 5/5 throughout Psych mental status grossly normal Mood & Affect: Negative for depressed or tearful Skin no rashes or lesions noted and no wounds MDM MDM MDM Narrative Medical decision making narrative: Differential diagnosis includes but not limited to cellulitis DVT compartment syndrome nerve injury Basic blood work was obtained. White count 6.4 hemoglobin 11.1. Platelet count of 212. CPK is normal. Electrolytes are normal glucose 121 normal LFTs. Clinically this could be cellulitis as it appears that the swelling is in the soft tissue of the forearm not in the muscle belly. She is moving the arm appropriately. Paresthesias could be from nerve compression from the swelling. I doubt that this is DVT as the hand does not appear swollen nor the wrist in the area that is swollen as well demarcated. Recommend heat. I can place her on Keflex for the possibility of cellulitis. Can write for pain medication. Would recommend PCP follow-up or return if worsening History & Record Review Discussion w/independent historian: Patient Discharge Plan Triage Chief Complaint: Upper Extremity Injury ED Provider: Misha Coburn Dx/Rx/DC Orders Clinical Impression: Pain of right forearm, Cellulitis of forearm, Arm paresthesia, right Instructions: ED Cellulitis Prescriptions: New cephalexin 500 mg capsule 500 mg PO Q6 Qty: 28 0RF oxycodone-acetaminophen [Percocet] 5-325 mg tablet 1 tab PO Q6H PRN (Reason: pain) 3 Days Qty: 12 0RF No Action propranolol 20 mg tablet 20 mg PO BID escitalopram oxalate 10 mg tablet 10 mg PO DAILY albuterol sulfate [Ventolin HFA] 90 mcg/actuation HFA aerosol inhaler 1 - 2 puff inhalation Q4H PRN PRN (Reason: Wheezing) Qty: 6.7 0RF Primary Care Provider: Chepe Watkins Referrals: Chepe Watkins MD [Primary Care Provider] - 3-5 Days if not improving Activity Restrictions/Additional Instructions: I would recommend using heat to the area. I would encourage you to keep using the arm to improve circulation. Monitor for any changes return if worsening or concerns. Print Language: Lithuanian Disposition Disposition: Home, Self Care
[2024-04-28] MEDS: Ketorolac 30 MG/ML Syringe IV (06:01)
[2024-04-28 06:11] LABS: Absolute Lymphocyte Count 2.44 X10^3/uL (0.83-4.51); Absolute Neutrophil Count 3.1 X10^3/uL (2.0-7.7); Basophil# 0.02 X10^3/uL; Basophil% 0.3 % (0-1); Eosinophil# 0.31 X10^3/uL; Eosinophils% 4.9 % (0-5); Hematocrit 34.2 % (37-47); Hemoglobin 11.1 g/dL (12.0-15.0); Lymphocyte # 2.44 X10^3/ul (0.83-4.51); Lymphocyte % 38.2 % (19-41); Mean Corp Hgb Conc 32.5 g/dL (32-36); Mean Corpuscular Hgb 33.8 pg (27.0-32.0); Mean Corpuscular Volume 104.3 fL (81-99); Mean Platelet Vol. 9.6 fl (6.2-12.0); Monocyte# 0.54 X10^3/uL; Monocyte% 8.5 % (0-10); NRBC Flagged by Analyzer 0 % (0-5); Neutrophil # 3.07 X10^3/uL (2.7-7.7); Neutrophil % 47.9 % (47-70); Platelet Count 212 K/mm3 (150-450); RBC Distribution Width CV 12.9 % (11.6-14.6); RBC Distribution Width SD 48.6 fl (35.1-43.9); Red Blood Count 3.28 M/mm3 (4.2-5.4); White Blood Count 6.4 K/mm3 (4.4-11.0)
[2024-04-28 06:28] LABS: ALB/GLOB Ratio 0.9 RATIO (0.9-2.4); AST(SGOT) 12 U/L (15-37); Alanine Aminotransfer ALT/SGPT 15 U/L (13-56); Albumin, Serum 3.1 g/dL (3.2-5.0); Alkaline Phosphatase 69 U/L (45-117); Anion Gap 4 (5-15); BUN 15 mg/dL (7-18); BUN/Creat Ratio 20.7 RATIO (10-20); CPK Total, Creatine Kinase 64 U/L (26-192); Calcium,Total 8.4 mg/dL (8.5-10.1); Chloride 108 mmol/L (98-107); Creatinine, Serum 0.73 mg/dL (0.55-1.02); EST Glomerular Filtration Rate 91 mL/min (>60); Est Glom Filt Rate - Afr Amer 110 mL/min (>60); Estimated Creatinine Clearance 83.92 ml/min; Globulin 3.4 g/dL (2.2-4.2); Glucose 121 mg/dL (74-106); Potassium 3.7 mmol/L (3.5-5.1); Protein, Total 6.5 g/dL (6.4-8.2); Sodium Level 141 mmol/L (136-145)
[2024-04-28 07:36] VITALS: BP 134/78; PULSE 64; RESP 18; TEMP 36.4; O2SAT 98
== END 2024-04-28 07:37 | disposition home or self-care (01) ==
PROVIDERS: Emergency Provider Emergency Medicine; PCP Family Medicine; Visit Provider Emergency Medicine
DX: L03.113 Cellulitis of right upper limb (principal); R20.2 Paresthesia of skin; F17.210 Nicotine dependence, cigarettes, uncomplicated; M79.89 Other specified soft tissue disorders; J45.909 Unspecified asthma, uncomplicated; Z79.899 Other long term (current) drug therapy; M79.631 Pain in right forearm
CPT/HCPCS: 80053; 82550; 85025; 96374; 99284; A4216

== ENCOUNTER → 2024-08-21 | Outpatient (CLI) | payer OTHER, SELFPAY ==
[2024-08-21 17:06] LABS: Absolute Lymphocyte Count 3.71 X10^3/uL (0.83-4.51); Absolute Neutrophil Count 4.5 X10^3/uL (2.0-7.7); Basophil# 0.02 X10^3/uL; Basophil% 0.2 % (0-1); Eosinophil# 0.18 X10^3/uL; Hematocrit 35.7 % (37-47); Hemoglobin 11.7 g/dL (12.0-15.0); Lymphocyte # 3.71 X10^3/ul (0.83-4.51); Lymphocyte % 40.5 % (19-41); Mean Corp Hgb Conc 32.8 g/dL (32-36); Mean Corpuscular Hgb 33.6 pg (27.0-32.0); Mean Corpuscular Volume 102.6 fL (81-99); Mean Platelet Vol. 9.1 fl (6.2-12.0); Monocyte# 0.71 X10^3/uL; Monocyte% 7.8 % (0-10); NRBC Flagged by Analyzer 0 % (0-5); Neutrophil % 49.2 % (47-70); Platelet Count 258 K/mm3 (150-450); RBC Distribution Width CV 12.7 % (11.6-14.6); RBC Distribution Width SD 47.8 fl (35.1-43.9); Red Blood Count 3.48 M/mm3 (4.2-5.4); White Blood Count 9.2 K/mm3 (4.4-11.0)
[2024-08-21 17:28] LABS: Anion Gap 4 (5-15); BUN 13 mg/dL (7-18); Calcium,Total 8.5 mg/dL (8.5-10.1); Chloride 109 mmol/L (98-107); Creatinine, Serum 0.65 mg/dL (0.55-1.02); EST Glomerular Filtration Rate 104 mL/min (>60); Est Glom Filt Rate - Afr Amer 125 mL/min (>60); Glucose 79 mg/dL (74-106); Potassium 3.6 mmol/L (3.5-5.1); Sodium Level 138 mmol/L (136-145)
[2024-08-22 15:50] LABS: CRP < 2.90 mg/L (0.0-3.0); T4 Total, Thyroxin 5.6 ug/dL (4.8-13.9)
== END | disposition home or self-care (01) ==
PROVIDERS: PCP Family Medicine; Referring Provider Family Medicine; Visit Provider Family Medicine
DX: R55 Syncope and collapse (principal); R10.9 Unspecified abdominal pain; R19.7 Diarrhea, unspecified
CPT/HCPCS: 36415; 80048; 84436; 84443; 85025; 86140

== ENCOUNTER → 2024-08-22 | Outpatient (CLI) | payer OTHER, SELFPAY ==
[2024-08-22 08:54] LABS: Internal QC Validated? YES +Cl - CLEAR BKGD; Pregnancy, Serum, hCG Quali. NEGATIVE Negative
--- NOTE | 2024-08-22 18:11 | PCM.TILTTABL ---
Staff Staff: Sonya Chavez and Birgit Gutierres Summary Pre Test Resting HR: 69 Pre Test Resting BP: 136/71 Minimum Test HR: 69 Maximum Test HR: 90 Minimum Test BP: 99/71 Maximum Test BP: 118/85 Reason for Test Termination: Reached Maximum Test Time Physician Tilt Table Report Patient's Physicians Primary Care Physician: Chepe Watkins Indications/Diagnosis: Syncope and collapse Procedure Comments: Patient was brought to the noninvasive lab in the postabsorptive nonsedated state. Informed consent was obtained. Initial heart rate and blood pressure was obtained as well as EKG demonstrating normal sinus rhythm with no acute changes. The patient was then placed in the 70 degree head upright tilt position for total duration of 20 minutes. Continuous EKG as well as blood pressure was monitored. Patient was noted to maintain appropriate heart rate and blood pressure with minimal symptomatology. Occasional palpitations were noted which correlated with premature ventricular complexes. The patient was then placed back in the recumbent position and then given 0.4 mg of sublingual nitroglycerin. Patient was then put back in the 70 degree head upright tilt position continuous EKG monitoring was performed there was mild increase in the heart rate but no significant drop in the blood pressure. After the appropriate time the patient was then placed back in the recumbent position. Summary: Negative head upright tilt table test with no significant symptomatology noted.
[2024-08-22 18:14] VITALS: BP 118/85; BP 136/71; BP 99/71
== END | disposition home or self-care (01) ==
PROVIDERS: Internal Medicine Cardiovascular Disease; PCP Family Medicine; Referring Provider Family Medicine; Visit Provider Family Medicine
DX: R42 Dizziness and giddiness (principal); R10.9 Unspecified abdominal pain; R19.7 Diarrhea, unspecified; R55 Syncope and collapse
CPT/HCPCS: 36415; 80048; 82784; 83516; 84702; 84703; 85025; 86255; 93660; A4216

== ENCOUNTER → 2024-10-10 | Outpatient (CLI) | payer OTHER, SELFPAY ==
--- NOTE | 2024-10-10 15:18 | RAD_ITS ---
PROCEDURE: FINGER(S) MIN 2 VIEWS REASON FOR EXAM: Pain, trauma TECHNIQUE: 3 view(s) of the right ring finger COMPARISON: None FINDINGS: No visible fracture. Normal alignment. Soft tissues are unremarkable. RAD/Finger(s) Min 2 Views IMPRESSION: NEGATIVE FINGER SERIES Reading Location: [facility]
== END | disposition home or self-care (01) ==
LOC: MTRAD 15:09
PROVIDERS: PCP Family Medicine; Referring Provider Family Medicine; Visit Provider Family Medicine
DX: S69.91XA Unspecified injury of right wrist, hand and finger(s), initial encounter (principal); X58.XXXA Exposure to other specified factors, initial encounter
CPT/HCPCS: 73140

== ENCOUNTER → 2024-10-25 | Outpatient (CLI) | payer OTHER, SELFPAY ==
[2024-10-25 17:44] LABS: Hematocrit 37.3 % (37-47); Hemoglobin 12.1 g/dL (12.0-15.0); Mean Corp Hgb Conc 32.4 g/dL (32-36); Mean Corpuscular Hgb 33.4 pg (27.0-32.0); Mean Platelet Vol. 9.2 fl (6.2-12.0); Platelet Count 236 K/mm3 (150-450); RBC Distribution Width CV 12.6 % (11.6-14.6); RBC Distribution Width SD 47.8 fl (35.1-43.9); Red Blood Count 3.62 M/mm3 (4.2-5.4); White Blood Count 7.8 K/mm3 (4.4-11.0)
[2024-10-25 17:48] LABS: Erythrocyte Sedimentation Rate 2 mm/hr (0-30)
[2024-10-27 16:09] LABS: Endomysial Antibody IgA Negative (Negative); Immunoglobulin A 346 mg/dL (87-352); t-Transglutaminase IgA <2 U/mL (0-3)
== END | disposition home or self-care (01) ==
LOC: MTLAB 16:29
PROVIDERS: PCP Family Medicine; Referring Provider Internal Medicine Gastroenterology; Visit Provider Internal Medicine Gastroenterology
DX: R10.9 Unspecified abdominal pain (principal); R19.7 Diarrhea, unspecified
CPT/HCPCS: 36415; 82784; 83516; 85027; 85652; 86255

== ENCOUNTER → 2025-06-14 | Outpatient (CLI) | payer OTHER, SELFPAY ==
[2025-06-16 11:08] LABS: QNTFERON TB Mitogen Value > 10.00 IU/mL (.); QNTFERON TB Nil Value 0.05 IU/mL (.); QNTFERON TB1+ Ag Value 0.05 IU/mL (.); QNTFERON TB2+ Ag Value 0.08 IU/mL (.); QNTIFERON TB Positive Criteria Negative (Negative)
== END | disposition home or self-care (01) ==
LOC: MTLAB 16:25
PROVIDERS: PCP Family Medicine; Referring Provider Dermatology Pediatric Dermatology; Visit Provider Dermatology Pediatric Dermatology
DX: L40.0 Psoriasis vulgaris (principal)
CPT/HCPCS: 36415; 86480

== ENCOUNTER 2025-08-27 10:13 | Emergency (ER) | payer OTHER, SELFPAY ==
[2025-08-27] VITALS (8 sets, daily range): BP systolic 113–138; BP diastolic 73–90; PULSE 73–76; RESP 11–22; TEMP 36.6–37.1; O2SAT 92–98; BMI 26.4
--- NOTE | 2025-08-27 10:45 | RAD_ITS ---
PROCEDURE: CHEST PA AND LATERAL 08/27/2025 REASON FOR EXAM: CHEST PAIN TECHNIQUE: Procedure Code: RADCXR Modality: DX Procedure: CHEST PA AND LATERAL COMPARISON: 18 February 2024 FINDINGS: The lungs are adequately aerated bilaterally without pleural effusion, pneumothorax, or focal airspace disease. Mild coarsened pulmonary markings, stable over the interval. Atheromatous changes of the aorta, scattered without cardiomegaly. Osseous structures are age-appropriate. RAD/Chest PA and Lateral IMPRESSION: No evidence of acute cardiopulmonary abnormality. Reading Location: [id number]
--- NOTE | 2025-08-27 10:45 | EKG12_ITS ---
Test Reason : Blood Pressure : */* mmHG Vent. Rate : 69 BPM Atrial Rate : 69 BPM P-R Int : 156 ms QRS Dur : 84 ms QT Int : 396 ms P-R-T Axes : -11 -17 -8 degrees QTcB Int : 424 ms Normal sinus rhythm Minimal voltage criteria for LVH, may be normal variant ( R in aVL ) Borderline ECG Poor data quality Confirmed by Minh Haddad ([id number]), editorial specialist ASHKAN BAIRD ([id number]) on 08/28/2025 11:01:18 AM Also confirmed by Minh Haddad ([id number]), editorial specialist ASHKAN BAIRD ([id number]) on 08/29/2025 11:10:53 AM Referred By: Confirmed By: Minh Haddad
--- NOTE | 2025-08-27 11:01 | ED.VIS.CHEST ---
HPI History of Present Illness Chief Complaint: Chest Pain Narrative Narrative: Chief complaint and HPI: 50-year-old female with past medical history of asthma and tobacco abuse presents for evaluation of chest pain. Patient states she was at work when she felt some heaviness in her chest. States she then became anxious and heaviness worsened. She denies any fever, chills, shortness of breath, abdominal pain, nausea, vomiting. She is not on any control. She denies any recent surgery or travel. She states the pain is under her left breast. She denies any history of CAD or HTN. Did not take anything for the pain prior to arrival. Review of systems: See HPI Medications: As listed on the chart Allergies: As listed on the chart PFSH: Per chart Vital signs: As listed on the chart. Reviewed. Physical exam: Gen: A&O x3, NAD but anxious Head: Normocephalic, atraumatic Eyes: No sclera icterus, conjunctiva clear ENT: Moist mucous membranes Neck: Trachea midline, No JVD CV: RRR, no murmurs, no peripheral edema Resp: Lungs CTA BL, no w/r/c GI: Abd soft, non-distended, non-tender, no r/r/g Musc: Full ROM, no deformity Skin: Warm, dry Neuro: Alert, oriented, grossly intact, sensation intact Psych: Cooperative, appropriate mood and affect [facility] Medical History Asthma Cardiac abnormality Home Medications ?Medication ?Instructions ?Recorded ?Last Taken ?Type albuterol sulfate 90 mcg/actuation 1 - 2 puff inhalation Q4H PRN PRN 01/11/24 Unknown Rx aerosol inhaler (Ventolin HFA) Wheezing #6.7 grams trazodone 50 mg tablet 50 mg PO QHS PRN sleep 06/04/25 Unknown History alprazolam 0.5 mg tablet 0.5 mg PO BID PRN PRN panic attack 08/27/25 Unknown History bimekizumab-bkzx 320 mg/2 mL 320 mg subcut .COMPLEX 08/27/25 08/20/25 History subcutaneous syringe (Bimzelx) dextroamphetamine-amphetamine ER 1 cap PO BID 08/27/25 08/27/25 History 15 mg 24hr capsule,extend release ipratropium bromide 42 mcg (0.06 2 spray intranasal TID PRN PRN 08/27/25 Unknown History %) nasal spray allergy symptoms ondansetron HCl 4 mg tablet 4 mg PO DAILY PRN nausea and 08/27/25 Unknown History vomiting propranolol 20 mg tablet 20 mg PO BID 08/27/25 08/26/25 History tramadol 50 mg tablet 50 mg PO BID PRN PRN pain 08/27/25 Unknown History vortioxetine 10 mg tablet 10 mg PO DAILY 08/27/25 08/26/25 History (Trintellix) Allergy/AdvReac Type Severity Reaction Status Date / Time aspirin (ASA) AdvReac PT UNSURE Verified 08/27/25 10:18 OF REACTION Social History Smoking Status: Current every day smoker tobacco type: cigarettes EXAM Physical Exam Const Vital Signs: 08/27/25 10:14 08/27/25 10:19 08/27/25 12:20 Temperature 98.7 F Temperature Source Temporal Pulse Rate 76 73 Respiratory Rate 18 15 Respiratory Effort Normal Blood Pressure 138/90 H 127/82 H Blood Pressure Mean 106 97 Pulse Ox 98 97 Oxygen Delivery Method Room Air Room Air 08/27/25 13:00 08/27/25 13:22 08/27/25 13:30 Temperature Temperature Source Pulse Rate 73 74 73 Respiratory Rate 11 L 18 17 Respiratory Effort Blood Pressure 113/76 126/73 H Blood Pressure Mean 88 88 Pulse Ox 98 92 95 Oxygen Delivery Method Room Air 08/27/25 13:45 08/27/25 13:54 08/27/25 14:01 Temperature 98.7 F 97.9 F Temperature Source Pulse Rate 75 73 73 Respiratory Rate 22 H 11 L 11 L Respiratory Effort Blood Pressure 126/77 H 113/76 113/76 Blood Pressure Mean 92 88 88 Pulse Ox 92 98 98 Oxygen Delivery Method MDM MDM MDM Narrative Medical decision making narrative: 50-year-old female with past medical history of asthma and tobacco abuse presents for evaluation of chest pain. Patient states she was at work when she felt some heaviness in her chest. States she then became anxious and heaviness worsened. She denies any recent surgery or travel. She states the pain is under her left breast. She denies any history of CAD or HTN. Did not take anything for the pain prior to arrival. On presentation, patient no acute distress other than anxious. Differential diagnosis includes but is not limited to myofascial spasm, anxiety reaction, ACS, arrhythmia, anemia, electrolyte abnormality, suspect less likely PE. Patient has an allergy to aspirin which she states is nausea. I did recommend her taking the aspirin and that I will give her something for nausea as this is not a true allergy. She declined. Will give morphine and Zofran. Cardiac workup ordered. CBC without leukocytosis or anemia. Platelets unremarkable. D-dimer unremarkable. CMP relatively unremarkable. Troponin unremarkable x 2. Lipase not elevated. BNP unremarkable. At this point in time, no clear etiology to explain patient's chest pain. On reevaluation her chest pain has resolved. Her heart score is a 2 which places her at low risk for ACS. Patient is stable to discharge home. Recommend following up with primary care physician. Return back to ED symptoms change or worsen. She confirmed understand the plan. Patient will discharge home. EKG: Interpreted by me/EM physician: EKG shows normal sinus rhythm. There is multiple artifact on the EKG. Heart rate 69. No QTc prolongation Diagnostic: Interpreted by me/EM physician: Chest x-ray not pneumonia, effusion, cardiomegaly, pneumothorax. Radiology in agreement. Impression: 1. Resolved chest pain Lab Data Labs: Laboratory Results - last 24 hr 08/27/25 08/27/25 09:55 11:47 WBC 7.6 RBC 4.04 L Hgb 13.6 Hct 40.2 MCV 99.5 H MCH 33.7 H MCHC 33.8 RDW Std Deviation 45.1 H RDW Coeff of Fariha 12.3 Plt Count 278 MPV 9.7 Immature Gran % (Auto) 0.500 Neut % (Auto) 54.3 Lymph % (Auto) 39.1 [place] % (Auto) 4.7 Eos % (Auto) 0.9 Baso % (Auto) 0.5 Absolute Neuts (auto) 4.1 Absolute Lymphs (auto) 2.96 Nucleated RBC % 0 D-Dimer Quant (PE/DVT) 0.40 Sodium 139 Potassium 3.8 Chloride 97 L Carbon Dioxide 22.7 Anion Gap 19 H BUN 12 Creatinine 0.61 L Estim Creat Clear Calc 95.24 Est GFR (MDRD) Non-Af 109 BUN/Creatinine Ratio 19.4 Glucose 76 Calcium 9.2 Total Bilirubin 0.61 AST 31 ALT 18 Alkaline Phosphatase 104 Troponin T High Sens < 6 Troponin T Hi Sens 2 Hr < 6 NT pro BNP II < 36 Total Protein 8.1 Albumin 4.5 Globulin 3.6 Albumin/Globulin Ratio 1.3 Lipase 11 L Radiography Diagnostic Testing: Clinical Impression(s) from Imaging Studies Chest X-Ray 08/27/25 10:45 IMPRESSION: No evidence of acute cardiopulmonary abnormality. Reading Location: [facility] Discharge Plan Triage Chief Complaint: Chest Pain ED Provider: Chaka Gallo Dx/Rx/DC Orders Clinical Impression: Chest pain Instructions: ED Chest Pain, Uncertain Cause Prescriptions: No Action trazodone 50 mg tablet 50 mg PO QHS PRN (Reason: sleep) albuterol sulfate [Ventolin HFA] 90 mcg/actuation HFA aerosol inhaler 1 - 2 puff inhalation Q4H PRN PRN (Reason: Wheezing) Qty: 6.7 0RF alprazolam 0.5 mg tablet 0.5 mg PO BID PRN PRN (Reason: panic attack) ipratropium bromide 42 mcg (0.06 %) spray,non-aerosol 2 spray INTRANASAL TID PRN PRN (Reason: allergy symptoms) dextroamphetamine-amphetamine 15 mg capsule,extended release 24hr 1 cap PO BID Bimzelx 320 mg/2 mL syringe 320 mg SUBCUT .COMPLEX Patient Comments: [NO ORIGINAL SIG] Rx Instructions: 320 mg subcutaneously [id number]; ondansetron HCl 4 mg tablet 4 mg PO DAILY PRN (Reason: nausea and vomiting) tramadol 50 mg tablet 50 mg PO BID PRN PRN (Reason: pain) Trintellix 10 mg tablet 10 mg PO DAILY propranolol 20 mg tablet 20 mg PO BID Primary Care Provider: Chepe Watkins Referrals: Chepe Watkins MD [Primary Care Provider, Family Practice] - 3-5 Days Activity Restrictions/Additional Instructions: Follow-up with primary care physician. Return back to ED if symptoms change or worsen. Print Language: [place] Disposition Disposition: Home, Self Care Discharge Date/Time: 08/27/25 14:02
[2025-08-27 11:18] LABS: Hematocrit 40.2 % (37-47); Hemoglobin 13.6 g/dL (12.0-15.0); Immature Granulocytes Count 0.040 X10^3/uL (0.0-0.0); Mean Corp Hgb Conc 33.8 g/dL (32-36); Mean Corpuscular Volume 99.5 fL (81-99); Mean Platelet Vol. 9.7 fl (6.2-12.0); NRBC Flagged by Analyzer 0 % (0-5); Platelet Count 278 K/mm3 (150-450); RBC Distribution Width CV 12.3 % (11.6-14.6); RBC Distribution Width SD 45.1 fl (35.1-43.9); Red Blood Count 4.04 M/mm3 (4.2-5.4); White Blood Count 7.6 K/mm3 (4.4-11.0)
[2025-08-27 11:33] LABS: AST(SGOT) 31 U/L (<=31); Alanine Aminotransfer ALT/SGPT 18 U/L (<=34); Albumin, Serum 4.5 g/dL (3.5-5.0); Alkaline Phosphatase 104 U/L (35-104); Anion Gap 19 (5-15); BUN 12 mg/dL (4-19); BUN/Creat Ratio 19.4 RATIO (10-20); Calcium,Total 9.2 mg/dL (7.6-11.0); Carbon Dioxide 22.7 mmol/L (21.0-32.0); Chloride 97 mmol/L (98-108); Estimated Creatinine Clearance 95.24 ml/min (50-250); Globulin 3.6 g/dL (2.2-4.2); Glucose 76 mg/dL (70-99); Lipase 11 U/L (13-75); Potassium 3.8 mmol/L (3.3-5.1)
[2025-08-27 11:35] LABS: Pro- Brain NATRIURETIC PEPTIDE < 36 pg/mL (<=450); Troponin T High Sensitivity < 6 ng/L (<=14)
[2025-08-27 11:44] LABS: D-Dimer Quantitative (DVT/PE) 0.40 FEU/ug/m (0.27-0.49)
[2025-08-27 12:28] LABS: Troponin T High Sens 2 HR < 6 ng/L (<=14)
--- OUTSIDE RECORDS SUMMARY | 2025-08-27 18:41 | XMS RPT_ITS | CCD ---
Author Organization [facility] Inform ion Partnership [facility] Care Team Providers Care Communications Lead Name Role Phone Unavailable Primary Care Provider Unavailabl e Rodriguez Hough Primary Care Provider [phone] SCOTT EDWARDS Attending Unavailable RODRIGUEZ HOUGH Primary Care Unavailable SCOTT EDWARDS Attending Unavailable GIANLUCA, RODRIGUEZ Primary Care Unavailable SCOTT EDWARDS Attending Unavailable GIANLUCA, RODRIGUEZ Primary Care Unavailable SCOTT EDWARDS Attending Unavailable RODRIGUEZ HOUGH Primary Care Unavailable BISMARK GRESHAM Attending Unavailable RODRIGUEZ HOUGH MD Consulting Unavailable BISMARK GRESHAM Admitting Unavailable BISMARK GRESHAM Primary Care Unavailable PROVIDER, UNKNOWN Consulting Unavailable PROVIDER, UNKNOWN Consulting Unavailable PROVIDER, UNKNOWN Consulting Unavailable Roland, Chalon Referring Unavailable Roland, Chalon Primary Care Unavailable Roland, Leleon Attending Unavailable Roland, Chalon Referring Unavailable Roland, Chalon Primary Care Unavailable Roland, Chalon Attending Unavailable Roland, Chalon Referring Unavailable Roland, Chalon Primary Care Unavailable Roland, Chalon Attending Unavailable Donnie Underwood Attending Unavailable Roland, Chalon Primary Care Unavailable Roland, Chalon Referring Unavailable Roland, Chalon Referring Unavailable Brandon Gaitan Attending Unavailable Roland, Chalon Primary Care Unavailable Roland, Chalon Consulting Unavailable Roland, Chalon Primary Care Unavailable Nish Partida Attending Unavailable Roland, Chalon Referring Unavailable Justus Lexie Referring Unavailable Roland, Chalon Primary Care Unavailable Justus Lexie Attending Unavailable Vlad Lama Attending Unavailable Vlad Lama Referring Unavailable Roland, Chalon Primary Care Unavailable Medications Completed/Discontinued Medications Medication Drug Class(es) Dates Sig (Normalized) Sig (Original) [id number] 200 actuat albuterol 0.09 mg/actuat metered dose inhaler (3 sources) beta2-Adrenergic Agonist Start: 09-26-2008 take 2 puff(s) by inhalation every four hours as needed for wheezing albuterol sulfate(PROAIR HFA 90 MCG/ACTUATION AEROSOL INHALER) Indications: Unspecified asthma(493.90) 2 puffs every 4 hours as needed for wheezing. 1 MDI 5 09/26/2008 Active Comment on above: 2 puffs every 4 hour s as needed for wheezing. Budesonide / formoterol (2 sources) Corticosteroid, beta2-Adrenergic Agonist Start: 10-17-2021 take 2 puff(s) by inhalation twice daily budesonide-formot jona (SYMBICORT) 160-4.5 mcg/actuation inhaler Inhale 2 Puffs as instructed twice daily. 1 Inhaler 11 10/17/2021 Active Comment on above: Inhale 2 Puffs as in structed twice daily. doxepin hydrochloride 25 mg oral capsule (2 sources) Tricyclic Antidepressant Start: 09-17-2021 take 1 capsule by mouth once daily doxepin capsule 25 mg Take 25 mg by mouth once daily. 0 09/17/2021 Active Comment on above: Take 25 mg by mouth once daily. 60 actuat fluticasone propionate 0.25 mg/actuat / salmeterol 0.05 mg/actuat dry powder inhaler (1 source) Corticosteroid, beta2-Adrenergic Agonist Start: 09-26-2008 fluticasone/salme terol(ADVAIR DISKUS 250 MCG-50 MCG/DOSE FOR INHALATION) Indications: Unspecified asthma(493.90) Take one(1) inhalation twice daily; rinse and gargle mouth with water after each use. 1 5 09/26/2008 Active Comment on above: Take one(1) inhalati on twice daily; rinse and gargle mouth with water after each use. injector device (INJECT-EASE MISC) (2 sources) injector device (INJECT-EASE MISC) Allergy shots 0 Active Comment on above: Allergy shots loratadine 10 mg oral tablet (1 source) Start: 09-26-2008 LORATADINE 10 MG TAB Indications: Allergic rhinitis, cause unspecified Take one(1) tablet daily. 0 09/26/2008 Active Comment on above: Take one(1) tablet d aily. topiramate 25 mg oral tablet (2 sources) Start: 09-17-2021 take 1 tablet by mouth twice daily topiramate (TOPAMAX) 25 mg tablet Take 25 mg by mouth twice daily. 0 09/17/2021 Active Comment on above: Take 25 mg by mouth twice daily. traMADol hydrochloride 50 mg oral tablet (2 sources) Opioid Agonist Start: 10-11-2021 take 1 tablet by mouth every eight hours as needed traMADol (ULTRAM) 50 mg tablet Take 50 mg by mouth three times daily as needed. 0 10/11/2021 Active Comment on above: Take 50 mg by mouth three times daily as needed. Problems Active Problems Problem Classification Problem Date Documented Date Episodic/Chronic Alcohol-related disorders (1 source) Alcohol abuse, uncomplicated; Translations: [Alcohol abuse] Onset: 04-20-2023 Chronic Anxiety disorders (1 source) Post-traumatic stress disorder, unspecified; Translations: [PTSD (post-traumatic stress disorder)] Onset: 04-20-2023 Chronic Asthma (5 sources) Unspecified asthma, uncomplicated; Translations: [Asthma, unspecified [...] partial remission (HCC)] Onset: 04-20-2023 Chronic Other inflammatory condition of skin (1 source) Psoriasis vulgaris; Translations: [Psoriasis vulgaris] Onset: 06-28-2025 Chronic Other lower respiratory disease (1 source) [...] (HPV) DNA test positive] Episodic Substance-related disorders (2 sources) Cigarette smoker ; Translations: [Nicotine dependence, cigarettes, uncomplicated] Onset: 10-17-2021 10-17-2021 Chronic Past or Other Problems Problem Classification Problem Date Documented Da te Episodic/Chronic Abdominal pain (1 source) Unspecified abdominal pain; Translations: [Unspecified abdominal pain] Onset: 11-06-2024 Episodic Conditions associated with dizziness or vertigo (2 sources) Dizziness and giddiness; Translations: [Dizziness and giddiness] Onset: 09-22-2024 Episodic Other injuries and conditions due to external causes (1 source) Unspecified injury of right wrist, hand and finger(s), initial encounter; Translations: [Unspecified injury of right wrist, hand and finger(s), initial encounter] Onset: 10-25-2024 Episodic Sprains and strains (3 sources) Neck sprain; Translations: [Sprain of joints and ligaments of unspecified parts of neck, initial encounter] Onset: 09-26-2008 09-26-2008 Episodic Syncope (2 sources) Syncope and collapse; Translations: [Syncope and collapse] Onset: 09-22-2024 Episodic Results Test Name Value Interpretation Reference Range Facility Quantiferon TB-Gold+on 06-16 QFT MITOGEN JOSE > 10.00 Normal . [facility] Comment on above: Performed By: #### L 3400.8000 #### [facility] [address] [place], [place], [id number] QFT NIL VALUE 0.05 IU/mL Normal . [facility] Comment on above: Performed By: #### L 3400.8000 #### [facility] [address] [place], [place], [id number] QFT TB GOLD+ Comment Normal . [facility] Comment on above: Result Comment: Bo tiFERON-TB Gold Plus is a qualitative indirect test for M tuberculosis infection (including disease) and is intended for use in conjunction with risk assessment, radiography, and other medical and diagnostic evaluations. The QuantiFERON-TB Gold Plus result is determined by subtracting the Nil value from either TB antigen (Ag) value. The Mitogen tube serves as a control for the test. Performed By: #### L 3400.8000 #### [facility] [address] [place], [place], [id number] QFT TB POS CRIT Negative Normal Negative [facility] Comment on above: Result Comment: No r esponse to M tuberculosis antigens detected. Infection with M tuberculosis is unlikely, but high risk individuals should be considered for additional testing (ATS/IDSA/CDC Clinical Practice Guidelines, 2017). The reference range is an Antigen minus Nil result of <0.35 IU/mL. The specimen received for QuantiFERON testing was incubated by the ordering institution. Specific procedures outlined in our Directory of Services and in the package insert for the QuantiFERON Gold (In Tube) test must be followed to enable for proper stimulation of cells for the production of interferon gamma. Chemiluminescence immunoassay methodology Performed at: [facility] [id number] [id number] Ironer Machine: Vlad Ervin PhD, Phone: [phone] Performed By: #### L 3400.8000 #### [facility] [address] [place], [place], [address] QFT TB1+ AG JOSE 0.05 IU/mL Normal . [facility] Comment on above: Performed By: #### L 3400.8000 #### [facility] [address] [place], [place], [address] QFT TB2+ AG JOSE 0.08 IU/mL Normal . [facility] Comment on above: Performed By: #### L 3400.8000 #### [facility] [address] [place], [address] Urgent Care Visit Reporton 0 06-04-2025 Urgent Care Visit Report [facility] [address], [address] [place], [place] [address] OFFICE VISIT Date of Service: 06/04/25 MR#: [id number] Acct: [id number] Name: KIRTI AGUAYO Rep #: [id number] : 1975 Provider: JASBIR Ware Age/Sex: 50/F Location: [facility] Status: Signed Intake Vital Signs 04/28/24 05:22 06/04/25 09:50 Height 5 ft 1 in 5 ft 1 in Weight: 149 lb BMI 28.1 BP 126/80 H Blood Pressure Location Lt brachial Position Sitting Pulse 64 Pulse Source Monitor Temp 98.3 F Temp Source Oral Pulse Oximetry (%) 97 Oxygen Delivery Method room air Intake Visit Reasons: CONGESTION, HANDS/FEET SWOLLEN Chief Complaint: Congestion Accompanied by: Self Allergies No Known Allergies Allergy (Verified 06/04/25 09:25) Medications ???Medication ???Instructions ???Recorded ???Confirmed ???Type albuterol sulfate 90 mcg/actuation 1 - 2 puff inhalation Q4H PRN WA N 01/11/24 06/04/25 Rx aerosol inhaler (Ventolin HFA) Wheezing #6.7 grams propranolol 20 mg tablet 20 mg PO BID 04/28/24 06/04/25 His tory amoxicillin 875 mg-potassium 1 tab PO BID #20 tabs 06/04/25 Rx clavulanate 125 mg tablet aripiprazole 30 mg tablet (Abilify) 30 mg PO QDAY 06/04/25 06/04/25 History benzonatate 200 mg capsule 200 mg PO TID PRN cough #20 caps 0 06/04/25 06/04/25 Rx prednisone 10 mg tablet 10 mg PO QDAY #30 tabs 06/04/25 Rx trazodone 50 mg tablet 50 mg PO QHS 06/04/25 06/04/25 His tory Nurse's Note: chest congestion. feet, hands and eyes swollen, coughing up clear phlegm. Never got better from last visit. [facility] Medical History Asthma Cardiac abnormality Social History Smoking Status: Current every day smoker tobacco type: cigarettes HPI HPI Chief Complaint: Congestion Details: KIRTI AGUAYO, is a 50 F who presents to the office today for R max sinus asthmatic bronchtis augmentin prednisone benzon stop smoking [facility] for approximately 2-week history of progressively worsening right facial pressure/congestion with purulent postnasal drip, cough w/ wheeze (pmh asthma), and bilateral ear pressure -as well as new onset bilateral upper and lower eyelids and hands and feet trace edematous swelling with pruritus of unknown etiology. Last evaluation here prescribed azithromycin which gave her minimal to no improvement. No complaints of fever, chills, myalgias, fatigue, runny nose, nausea/vomiting/diarrhe a, constricted/pruritic airway or difficulty swallowing/drooling. No complaints of chest pain/shortness of breath/dyspnea on exertion. No close contacts with similar complaints. Vape and tobacco smoker. No other associated symptoms and no other alleviating/aggravating factors. ROS Const Constitutional: No other (as above) Exam Const General: cooperative, healthy appearing and no acute distress Orientation: alert, awake HENMT Head: normal to inspection Ears: hearing grossly normal bilaterally, external ears normal, TM's normal bilaterally and EAC's normal Nose: external nose normal, nares normal, septum normal and no nasal discharge Face and sinus: normal facial exam, right maxillary sinus palpable tender (w/ right maxillary fullness to palpation) and face symmetric Mouth: oral mucosae normal, lip normal, tongue normal and oropharynx normal Throat: posterior oropharynx normal, tonsils normal, uvula midline and postnasal drainage (Purulent) Eyes General: appearance normal, both eyes and all related structures (except bilateral upper and lower eyelids trace edematous swelling) Neck Neck: normal visual inspection, full ROM, no meningeal signs, supple and lymphadenopathy (Bilateral anterior cervical lymph node swelling/tender to palpation) Neck mass: No Thyroid: thyroid normal Chest Chest palpation inspection: normal inspection of the chest Resp Effort Inspection: normal respiratory effort and able to speak in complete sentences Auscultation: Bilateral: Clear to Auscultation Cardio Palpation: normal PMI Rate: regular rate Rhythm: regular rhythm Heart Sounds: S1 normal, S2 normal Pulses: radial pulses present GI Inspection: normal to inspection Skin General: no rashes or lesions noted (except bilateral hands and feet trace edematous swelling) Neuro General: patient alert, patient awake Cognition: normal cognition Speech: speech normal Psych Appearance: grossly normal Mental Status: mental status grossly normal Mood: congruent mood Affect: normal affect Speech and Movement: speech and movement normal Attitude: cooperative Diagnoses Acute maxillary sinusitis, unspecified J01.00 Asthmatic b (more content not included)... Normal [facility] Urgent Care Visit Reporton 0 05-25-2025 Urgent Care Visit Report [facility] [address], [address] [place] [address] OFFICE VISIT Date of Service: 05/25/25 MR#: [id number] Acct: [id number] Name: KIRTI AGUAYO Rep #: [id number] : 1975 Provider: JASBIR Chen Age/Sex: 50/F Location: [facility] Status: Signed Intake Vital Signs 04/28/24 05:22 Height 5 ft 1 in Intake Visit Reasons: CONGESTION/R THUMB INJURY Chief Complaint: congestion, SOB, right thumb Sew On Operator Required: No Is patient in pain?: Yes Allergies No Known Allergies Allergy (Verified 05/25/25 13:37) Is last menstrual period known: No Post menopausal: No Patient : No Have you fallen in the past year?: No Nurse's Note: right thumb getting stuck in bent position numerous x per day x 1 month. also c/o increasing SOB x 3 days with drainage and chest congestion. hx asthma, using inhalers more than normal without relief. no home nebs, no fever/ST/GRESHAM/BA PFSH Medical History Asthma Cardiac abnormality Social History Smoking Status: Current every day smoker tobacco type: cigarettes HPI HPI Chief Complaint: congestion, SOB, right thumb Details: KIRTI AGUAYO, is a 50 F who presents to the office today for complaint of cough, congestion and shortness of breath. Patient states that she has had this for the past several days despite use of her albuterol inhaler. She states the albuterol Hailer does help however the shortness of breath returns frequently. She denies fever, chills or sweats. No nausea, vomiting or diarrhea. Additionally patient states that she has an issue with her right thumb stating that she has difficulty straightening her right thumb completely. She states only way to straighten it is to hyperextend the thumb and then it pops over. No other associated symptoms or alleviating/aggravating factors. ROS Const Constitutional: No other (6 system ROS completed with pertinent findings in the HPI otherwise normal.) Exam Const General: cooperative and well developed HENMT Head: normal to inspection and atraumatic Ears: hearing grossly normal bilaterally Nose: nasal discharge clear Face and sinus: normal facial exam Mouth: oral mucosae normal Throat: abnormal tonsil bilaterally hypertrophy 1+ Resp Effort Inspection: normal respiratory effort and no audible wheezes Auscultation: Bilateral: Clear to Auscultation Cardio Rate: regular rate Rhythm: regular rhythm Neuro General: patient alert Extrem General: capillary refill normal and normal exam except as noted (Difficulty extending right thumb) Psych Appearance: grossly normal Mental Status: mental status grossly normal Coding Level of Care Code Off vis,new,level 4 Diagnoses Trigger thumb, right thumb M65.311 Acute bronchitis J20.9 Assessment and Plan Assessment and Plan (1) Trigger thumb, right thumb: Status: Acute (2) Acute bronchitis: Status: Acute Orders: Referrals Orthopedics M65.311 - Trigger thumb, right thumb Medications: New azithromycin take 500 mg today (day 1), then 250 mg for 4 days (days 2-5) PO 6 tabs 0RF methylprednisolone (Medrol (Capo)) 4 mg PO PER PKG DIR 21 tabs 0RF 6 days Plan Azithromycin and Medrol Dosepak as prescribed today. Patient given referral to orthopedics. Encouraged to get plenty of rest, drink lots of clear liquids, and use Tylenol or Ibuprofen (unless contraindicated) for fever and comfort. Patient also educated on other symptomatic management techniques. To be seen in 7-10 days if no improvement; sooner if worsening of symptoms. Patient advised of potential red flags and when appropriate to report to the ED. Patient verbalized understanding and agreement with all the above. Clinical Quality Measures Falls Risk Screening/Assistive Devices Have you fallen in the past year?: No 05/25/25 1509 Date Nish Pang Signature: Date (if applicable) CC: Normal [facility] Celiac Disease Profileon ENDOMYSIAL IGA Negative Normal Negative [facility] Comment on above: Performed By: #### L 100.0500, L101.9900, L3410.2400 ####[facility] [address] [place], [place], [id number] IMMUNOGLOB A QN 346 mg/dL Normal 87-352 [facility] Comment on above: Result Comment: Perf ormed at: [facility] [address] [id number] Ironer Machine: Vlad Ervin PhD, Phone: [phone] Performed By: #### L 100.0500, L101.9900, L3410.2400 ####[facility] [address] [place], [place], [id number] tTG IGA <2 Normal 0-3 [facility] Comment on above: Result Comment: Nega tive 0 - 3 Weak Positive 4 - 10 Positive >10 Tissue Transglutaminase (tTG) has been identified as the endomysial antigen. Studies have demonstr- ated that endomysial IgA antibodies have over 99% specificity for gluten sensitive enteropathy. Performed By: #### L 100.0500, L101.9900, L3410.2400 ####[facility] [address] [place], [place], [id number] CBC-Complete Blood Cnt No Di ffon 10-25-2024 Erythrocyte distribution width (RBC) [Ratio] 12.6 % Normal 11.6-14.6 [facility] Comment on above: Performed By: #### L 100.0500, L101.9900, L3410.2400 ####[facility] [address] [place], [place], [id number] Hematocrit (Bld) [Volume fraction] 37.3 % Normal 37-47 [facility] Comment on above: Performed By: #### L 100.0500, L101.9900, L3410.2400 ####[facility] [address] [place], [address] Hemoglobin (Bld) [Mass/Vol] 12.1 g/dL Normal 12.0-15.0 [facility] Comment on above: Performed By: #### L 100.0500, L101.9900, L3410.2400 ####[facility] [address] [place], [address] MCH (RBC) [Entitic mass] 33.4 pg High 27.0-32.0 [facility] Comment on above: Performed By: #### L 100.0500, L101.9900, L3410.2400 ####[facility] [address] [place], [address] MCHC (RBC) [Mass/Vol] 32.4 g/dL Normal 32-36 [facility] Comment on above: Performed By: #### L 100.0500, L101.9900, L3410.2400 ####[facility] [address] [place], [address] MCV (RBC) [Entitic vol] 103.0 fL High 81-99 [facility] Comment on above: Performed By: #### L 100.0500, L101.9900, L3410.2400 ####[facility] [address] [place], [address] Platelet mean volume (Bld) [Entitic vol] 9.2 fL Normal 6.2-12.0 [facility] Comment on above: Performed By: #### L 100.0500, L101.9900, L3410.2400 ####[facility] [address] [place], [address] Platelets (Bld) [#/Vol] 236 10*3/uL Normal 150-450 [facility] Comment on above: Performed By: #### L 100.0500, L101.9900, L3410.2400 ####[facility] [address] [place], [address] RBC (Bld) [#/Vol] 3.62 10*6/uL Low 4.2-5.4 [facility] Comment on above: Performed By: #### L 100.0500, L101.9900, L3410.2400 ####[facility] [address] [place], [address] RDW SD 47.8 fl High 35.1-43.9 [facility] Comment on above: Performed By: #### L 100.0500, L101.9900, L3410.2400 ####[facility] [address] [place], [address] WBC (Bld) [#/Vol] 7.8 10*3/uL Normal 4.4-11.0 [facility] Comment on above: Performed By: #### L 100.0500, L101.9900, L3410.2400 ####[facility] [address] [place], [address] Erythrocyte Sed Rateon - SED RATE 2 mm/hr Normal 0-30 [facility] Comment on above: Performed By: #### L 100.0500, L101.9900, L3410.2400 ####[facility] [address] [place], [address] Finger(s) Min 2 Viewson Finger(s) Min [address] [facility] Imaging Services [address] [place] [address] Finger(s) Min 2 Views MR#: [id number] Acct: [id number] Name: KIRTI AGUAYO Rep #: [id number] : 1975 F 49 From: Kendrick Alexandre PCP: Dr. Chepe Watkins MD Status: REG CLI Study: Finger(s) Min 2 Views Date of Exam: 10/10/24 Exam# [id number] Ordering Dr: Chepe Watkins MD PROCEDURE: FINGER(S) MIN 2 VIEWS REASON FOR EXAM: Pain, trauma TECHNIQUE: 3 view(s) of the right ring finger COMPARISON: None FINDINGS: No visible fracture. Normal alignment. Soft tissues are unremarkable. RAD/Finger(s) Min 2 Views IMPRESSION: NEGATIVE FINGER SERIES Reading Location: [facility] CC: Dr. Chepe Watkins MD Wire Spinner: Signed Normal [facility] CRPon 08-22-2024 C-REACTIVE PROT < 2.90 Normal 0.0-3.0 [facility] Comment on above: Order Comment: CRP T SH T4 ADD ON. MG7 [address] LAMA GETS CRP TSH T4 Interface Comments: Tilt test Order Date: 08/18/24 Order Info: 0667-1 - BMP TILT Test Result Comment: C-Re active Protein (CRP) provides useful information for the diagnosis, therapy and monitoring of inflammatory processes and associated diseases. For the evaluation of Relative Risk for Cardiovascular Disease, a High Sensitivity CRP (HSCRP) should be ordered. Performed By: #### L 501.6710, L501.9310, L501.9520 #### [facility] [address] [place], [place], [id number] Celiac Disease Profileon IMMUNOGLOB A QN Normal [facility] Comment on above: Order Comment: ADD O N CELIAC DIESEASE. TY1 1 C OR TY1 1 EDR. LAMA GETS CELIAC DISEASE Result Comment: PORTER Huggins SENT TO [facility] Performed By: #### L 3410.2400, L700.6800 ####[facility] [address] [place], [address] tTG IGA Normal [facility] Comment on above: Order Comment: ADD O N CELIAC DIESEASE. TY1 1 C OR TY1 1 TOÑORKsenia LAMA GETS CELIAC DISEASE Result Comment: PORTER R SENT TO [facility] Performed By: #### L 3410.2400, L700.6800 ####[facility] [address] [place], [address] ,Serum,hCG Quali.on 08-22-2024 HCG, SERUM QUAL Negative Normal [facility] Comment on above: Performed By: #### L 3410.2400, L700.6800 ####[facility] [address] [place], [address] T4 Total, Thyroxinon 024 T4 [Mass/Vol] 5.6 ug/dL Normal 4.8-13.9 [facility] Comment on above: Order Comment: CRP T SH T4 ADD ON. MG7 [address] LAMA GETS CRP TSH T4 Interface Comments: Tilt test Order Date: 08/18/24 Order Info: 0667-1 - BMP TILT Test Performed By: #### L 501.6710, L501.9310, L501.9520 #### [facility] [address] [place], [address] Thyroid Stim Hormone (TSH)on 08-22-2024 TSH 2.090 uIU/mL Normal 0.358-3.740 [facility] [facility] Comment on above: Order Comment: CRP T SH T4 ADD ON. MG7 [address] LAMA GETS CRP TSH T4 Interface Comments: Tilt test Order Date: 08/18/24 Order Info: 0667-1 - BMP TILT Test Performed By: #### L 501.6710, L501.9310, L501.9520 #### [facility] [address] [place], [address] Tilt Tableon 08-22-2024 Tilt Table [facility] [address] [place] [address] 08/22/24 1811 MR#: [id number] Acct: [id number] Name: KIRTI AGUAYO Rep #: [id number] : 1975 49 From: Brandon Gaitan MD Attending Dr: Dr. Chepe Watkins MD Status: REG C LI Ordering Dr: Chepe Watkins MD Date: 08/22/24 Location: [facility] Sex: F C Admitted: Staff Staff: Sonya Chavez and Birgit Gutierres Summary Pre Test Resting HR: 69 Pre Test Resting BP: 136/71 Minimum Test HR: 69 Maximum Test HR: 90 Minimum Test BP: 99/71 Maximum Test BP: 118/85 Reason for Test Termination: Reached Maximum Test Time Physician Tilt Table Report Patient's Physicians Primary Care Physician: Chepe Watkins Indications/Diagnosis: Syncope and collapse Procedure Comments: Patient was brought to the noninvasive lab in the postabsorptive nonsedated state. Informed consent was obtained. Initial heart rate and blood pressure was obtained as well as EKG demonstrating normal sinus rhythm with no acute changes. The patient was then placed in the 70 degree head upright tilt position for total duration of 20 minutes. Continuous EKG as well as blood pressure was monitored. Patient was noted to maintain appropriate heart rate and blood pressure with minimal symptomatology. Occasional palpitations were noted which correlated with premature ventricular complexes. The patient was then placed back in the recumbent position and then given 0.4 mg of sublingual nitroglycerin. Patient was then put back in the 70 degree head upright tilt position continuous EKG monitoring was performed there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
== END 2025-08-27 14:02 | disposition home or self-care (01) ==
PROVIDERS: Emergency Provider Surgery; PCP Family Medicine; Visit Provider Surgery
DX: R07.9 Chest pain, unspecified (principal); J45.909 Unspecified asthma, uncomplicated; R06.02 Shortness of breath; F17.210 Nicotine dependence, cigarettes, uncomplicated
CPT/HCPCS: 71046; 80053; 83690; 83880; 84484; 85025; 85379; 93005; 96374; 96375; 99285; A4216; J2405